=== PATIENT | male | born 1985 | race Two or more races ===

== ENCOUNTER 2016-05-24 21:13 | Emergency (ER) | payer MEDICAID ==
[~2016-05-24] VITALS: Ht 182.9 cm; Wt 104.3 kg
[2016-05-25 00:50] VITALS: BP 144/103
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
--- NOTE | 2016-05-25 01:05 | NUR ---
URINE COLLECTED. LAB AT BEDSIDE FOR BLOOD DRAW.
[2016-05-25 01:12] LABS: APPEARANCE,URINE CLEAR (CLEAR); BILIRUBIN,URINE 1+ (NEGATIVE); BLOOD, URINE NEGATIVE Ery/uL (NEGATIVE); COLOR,URINE DARK YELLOW (YELLOW); KETONES,URINE TRACE (NEGATIVE); LEUKOCYTE ESTERASE ,URINE NEGATIVE (NEGATIVE); NITRITE, URINE NEGATIVE (NEGATIVE); PROTEIN,URINE TRACE mg/dl (NEGATIVE); UGLUCOSE NEGATIVE (NEGATIVE); UROBILINOGEN,URINE 0.2 EU/dL (0.2)
[2016-05-25 01:12] LABS: BASOPHILS # (AUTO) 0.1 /CMM (0.0-0.2); BASOPHILS % (AUTO) 0.8 % (0.0-2.0); EOSINOPHILS # (AUTO) 0.1 /CMM (0.0-0.7); EOSINOPHILS % (AUTO) 0.8 % (0.0-6.0); HEMATOCRIT 49 % (39-51); HEMOGLOBIN 16.4 g/dL (13.5-17.5); LYMPHOCYTES # (AUTO) 3.2 /CMM (0.8-4.8); LYMPHOCYTES % (AUTO) 27.4 % (20.0-44.0); MEAN CORPUSCULAR HEMOGLOBIN 31 PG (26.0-33.0); MEAN CORPUSCULAR HGB CONC 34 g/dl (31.0-36.0); MEAN CORPUSCULAR VOLUME 92 fL (80-96); MONOCYTES # (AUTO) 0.8 /CMM (0.1-1.30); MONOCYTES % (AUTO) 6.4 % (2.0-12.0); NEUTROPHILS # (AUTO) 7.6 /CMM (1.8-8.9); NEUTROPHILS % (AUTO) 64.6 % (43.0-81.0); PLATELET COUNT (AUTO) 385 /CMM (150-450); RDW COEFFICIENT OF VARIATION 13.1 (11.5-15.0); RED BLOOD CELL COUNT(AUTO) 5.33 MIL/uL (4.5-6.0); WHITE BLOOD COUNT (AUTO) 11.8 K/uL (4.3-11.0)
--- NOTE | 2016-05-25 01:21 | NUR ---
ART AT BEDSIDE FOR EVAL.
[2016-05-25 01:25] LABS: CALCIUM, SERUM 9.1 mg/dL (8.5-10.1); CARBON DIOXIDE 24 mmol/L (21-32); CHLORIDE 106 mmol/L (98-107); GFR 88 mL/min (>60); GLUCOSE 92 mg/dL (74-106); POTASSIUM 3.7 mmol/L (3.5-5.1); SODIUM SERUM 142 mmol/L (136-145); UREA NITROGEN, BLOOD 15 mg/dL (7-18)
[2016-05-25 01:30] LABS: CANNABINOID, URINE NEGATIVE (NEGATIVE); PHENCYCLIDINE SCREEN,URINE NEGATIVE (NEGATIVE)
[2016-05-25] MEDS ORDERED: LORAZEPAM INJ 2 MG/ML VIAL IM ONE (01:30)
[2016-05-25 01:33] LABS: ALANINE AMINOTRANSFERASE 82 U/L (12-78); ALBUMIN 4.3 g/dL (3.4-5.0); ALCOHOL, BLOOD < 3 mg/dL (0-0); ALKALINE PHOSPHATASE 112 U/L (46-116); ASPARTATE AMINOTRANSFERASE 35 U/L (15-37); BILIRUBIN,DIRECT 0.1 mg/dL (0.0-0.2); BILIRUBIN,TOTAL 0.4 mg/dL (0.2-1.0); TOTAL PROTEIN, SERUM 8.4 g/dL (6.4-8.2)
[2016-05-25 01:34] LABS: ADD URINE CULTURE NO; BACTERIA,URINE Few /HPF (None Seen); CALCIUM OXALATE CRYSTALS,UR Many /HPF (None Seen); RBC,URINE 0-2 /HPF (0-2); SQUAMOUS EPITHELIAL CELL,UR Rare /HPF (None Seen); WBC,URINE 0-2 /HPF (0-3)
[2016-05-25 01:36] LABS: MUCUS,URINE Many /LPF (None Seen)
[2016-05-25 01:36] LABS: ACETAMINOPHEN 0 ug/ml (10-30); SALICYLATE 2.3 mg/dL (2.8-20.0)
[2016-05-25] MEDS ORDERED: LORAZEPAM INJ 2 MG/ML VIAL ONE (01:47)
== END 2016-05-25 02:29 | disposition home or self-care (01) ==
LOC: ER 21:17
DX: F41.9 Anxiety disorder, unspecified (principal); R07.9 Chest pain, unspecified
CPT/HCPCS: 36415; 80048; 80076; 80305; 80329; 81001; 85025; 96372; 99284; A4606; G0480 ×2; J2060; Z7610; 81000-TC; G6039-TC

== ENCOUNTER 2018-05-22 06:17 | Emergency (ER) | payer MEDICAID, OTHER ==
[~2018-05-22] VITALS: Ht 177.8 cm; Wt 113.4 kg
[2018-05-22] MEDS ORDERED: HALOPERIDOL LACTATE INJ 5 MG/ML VIAL ONE (06:22)
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
[2018-05-22] MEDS ORDERED: HALOPERIDOL LACTATE INJ 5 MG/ML VIAL IM ONE (06:30)
--- NOTE | 2018-05-22 06:58 | NUR ---
PT RESTING COMFORTABLY IN BED. EASILY AROUSABLE. PT STILL ON CONTINUOUS COOK AT SCHOOL, WILL CONTINUE TO MONITOR
--- NOTE | 2018-05-22 07:23 | NUR ---
GAVE REPORT TO AM SHIFT RN FOR BERE
--- NOTE | 2018-05-22 07:50 | NUR ---
ASSUME PT CARE. RESTING IN BED. EASILY AROUSABLE. DENIES ANY PAIN. STABLE VITALS. WILL CONTINUE TO MONITOR.
[2018-05-22 09:30] VITALS: BP 115/60
--- NOTE | 2018-05-22 09:30 | NUR ---
PT IS AWAKE. AAOX4, DENIES ANY MEDICAL COMPLAINTS AT THIS TIME. VSS.
--- NOTE | 2018-05-22 10:08 | NUR ---
PT MEDICALLY CLEARED BY ERMD FOR D/C. LEFT ED W/OUT ACI AND PRESCRIPTION.
== END 2018-05-22 10:13 | disposition home or self-care (01) ==
LOC: ER 06:19
DX: T43.621A Poisoning by amphetamines, accidental (unintentional), initial encounter (principal); Y92.89 Other specified places as the place of occurrence of the external cause
CPT/HCPCS: J1630

== ENCOUNTER 2019-04-22 00:15 | Emergency (ER) | payer SELFPAY ==
[~2019-04-22] VITALS: Ht 177.8 cm; Wt 81.6 kg
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
--- NOTE | 2019-04-22 00:45 | NUR ---
ART OFFICERS AT BEDSIDE TALKING TO PT.
[2019-04-22] MEDS ORDERED: HYDROCODONE/APAP 5/325MG 1 EACH TABLET ONE (00:55)
[2019-04-22] MEDS: HYDROCODONE/APAP 5/325MG 1 EACH TABLET PO ONE (00:55)
--- NOTE | 2019-04-22 01:31 | NUR ---
TECH AT BEDSIDE FOR XRAY
--- NOTE | 2019-04-22 02:10 | NUR ---
Christiano fernandez in ED - 04/22/19 at 0331 by NATHAN Patient discharged to home in stable condition. Written and verbal after care instructions given. Patient verbalizes understanding of instruction.
[2019-04-22 02:11] VITALS: BP 117/81
== END 2019-04-22 03:32 | disposition left against medical advice (07) ==
LOC: ER 00:16
DX: M25.512 Pain in left shoulder (principal); M25.522 Pain in left elbow; M79.632 Pain in left forearm; M79.662 Pain in left lower leg; M79.661 Pain in right lower leg; F12.90 Cannabis use, unspecified, uncomplicated; Y00.XXXA Assault by blunt object, initial encounter; Y93.89 Activity, other specified; Y92.89 Other specified places as the place of occurrence of the external cause; Y99.8 Other external cause status
CPT/HCPCS: 73030-TC; 73070-TC; 73090-TC; 73590-TC

== ENCOUNTER 2019-05-08 23:08 | Emergency (ER) | payer SELFPAY ==
[~2019-05-08] VITALS: Ht 182.9 cm; Wt 90.7 kg
--- NOTE | 2019-05-08 23:10 | NUR ---
KELVIN AND [employer] FROM STREET. PT ADMITS TO METH USE EARLIER TODAY PER RA, BS 94, pt awake, pt on monitor, pt to bed 6, -sob, pending md ty
[2019-05-08] MEDS ORDERED: LORAZEPAM INJ 2 MG/ML VIAL ONE (23:56)
[2019-05-09] MEDS ORDERED: LORAZEPAM INJ 2 MG/ML VIAL IM ONE
--- NOTE | 2019-05-09 00:58 | NUR ---
pt in bed, pt on monitor, vss, nad noted, sleeping at this time
--- NOTE | 2019-05-09 04:20 | NUR ---
Patient is resting comfortably in bed with eyes closed. Easily aroused. VSS
[2019-05-09 05:56] VITALS: BP 122/81
== END 2019-05-09 05:56 | disposition home or self-care (01) ==
LOC: ER 23:12
DX: F15.10 Other stimulant abuse, uncomplicated (principal)
CPT/HCPCS: 96372; 99283; J2060

== ENCOUNTER 2019-08-28 19:41 | Emergency (ER) | payer MEDICAID, OTHER ==
[~2019-08-28] VITALS: Ht 182.9 cm; Wt 108.9 kg
[2019-08-28 19:41] VITALS: BP 120/54
--- NOTE | 2019-08-28 19:48 | NUR ---
SEEN AND EXAMINED BY .
[2019-08-28] MEDS ORDERED: LORAZEPAM 1 MG TABLET ONE (19:51)
--- NOTE | 2019-08-28 19:57 | NUR ---
Patient discharged to home in stable condition. Written and verbal after care instructions given. Patient verbalizes understanding of instruction.
[2019-08-28] MEDS ORDERED: LORAZEPAM 1 MG TABLET PO ONE (20:00)
== END 2019-08-28 20:03 | disposition home or self-care (01) ==
LOC: ER 19:46
DX: F41.9 Anxiety disorder, unspecified (principal); F12.90 Cannabis use, unspecified, uncomplicated

== ENCOUNTER → 2019-09-09 | Emergency (ER) | payer OTHER ==
[~2019-09-09] VITALS: Ht 182.9 cm; Wt 108.9 kg
[~2019-09-09] MED LIST: OLANZAPINE 10 MG VIAL IM ONE
--- NOTE | 2019-09-09 20:29 | NUR ---
BIB EMS WITH [employer] C/O "ALTERED, METH USE" PER EMS REPORT. VERSED 5MG IM GIVEN BY EMS HAND CLOTH CUTTER. PT TO BED 15, PLACED ON MONITOR, VSS, -SOB, PENDING MD RIVAS
--- NOTE | 2019-09-09 20:52 | NUR ---
BIJAL [phone] MOTHER
[2019-09-09 21:01] LABS: BASOPHILS # (AUTO) 0.1 /CMM (0.0-0.2); BASOPHILS % (AUTO) 1.3 % (0.0-2.0); EOSINOPHILS % (AUTO) 0.8 % (0.0-6.0); HEMATOCRIT 37 % (39-51); HEMOGLOBIN 12.5 g/dL (13.5-17.5); LYMPHOCYTES # (AUTO) 2.3 /CMM (0.8-4.8); LYMPHOCYTES % (AUTO) 24.1 % (20.0-44.0); MEAN CORPUSCULAR HGB CONC 34 g/dl (31.0-36.0); MEAN CORPUSCULAR VOLUME 92 fL (80-96); MONOCYTES # (AUTO) 0.8 /CMM (0.1-1.30); MONOCYTES % (AUTO) 8.5 % (2.0-12.0); NEUTROPHILS # (AUTO) 6.3 /CMM (1.8-8.9); NEUTROPHILS % (AUTO) 65.3 % (43.0-81.0); PLATELET COUNT (AUTO) 396 /CMM (150-450); RED BLOOD CELL COUNT(AUTO) 4.01 MIL/uL (4.5-6.0); WHITE BLOOD COUNT (AUTO) 9.6 K/uL (4.3-11.0)
[2019-09-09 21:14] LABS: ALANINE AMINOTRANSFERASE 25 U/L (12-78); ALBUMIN 3.2 g/dL (3.4-5.0); ALKALINE PHOSPHATASE 75 U/L (46-116); ASPARTATE AMINOTRANSFERASE 20 U/L (15-37); BILIRUBIN,DIRECT 0.1 mg/dL (0.0-0.2); BILIRUBIN,TOTAL 0.3 mg/dL (0.2-1.0); CARBON DIOXIDE 21 mmol/L (21-32); CHLORIDE 105 mmol/L (98-107); CREATININE 1.3 mg/dL (0.6-1.3); GLUCOSE 114 mg/dL (74-106); POTASSIUM 3.5 mmol/L (3.5-5.1); SODIUM SERUM 140 mmol/L (136-145); TOTAL PROTEIN, SERUM 7.6 g/dL (6.4-8.2); UREA NITROGEN, BLOOD 19 mg/dL (7-18)
--- NOTE | 2019-09-09 21:16 | NUR ---
PATIENT CAME TO ER BED 15 BIB [employer] AND [employer] C/O TAKING DRUGS. PATIENT STATES THAT HE TOOK CRYSTAL METH. PATIENT ADMITS TO HEARING VOICES, BUT IS UNSURE OF WHAT THE VOICES ARE SAYING. PATIENT STATES, "FUCK THIS SHIT, I JUST WANNA GO HOME". DENIES SUICIDAL IDEATION. AAOX2. BREATHING EVENLY AND UNLABORED ON ROOM AIR. CONNECTED TO MONITOR. SITTER AT BEDSIDE.
[2019-09-09 21:43] LABS: ACETAMINOPHEN 0 ug/ml (10-30); ALCOHOL, BLOOD < 3 mg/dL (0-0); SALICYLATE 1.4 mg/dL (2.8-20.0)
--- NOTE | 2019-09-09 22:02 | NUR ---
URINE COLLECTED AND SENT TO THE LAB.
[2019-09-09 22:16] LABS: APPEARANCE,URINE Clear (CLEAR); BILIRUBIN,URINE Negative (NEGATIVE); BLOOD, URINE Moderate Ery/uL (NEGATIVE); COLOR,URINE Yellow (YELLOW); KETONES,URINE Trace (NEGATIVE); LEUKOCYTE ESTERASE ,URINE Negative (NEGATIVE); NITRITE, URINE Negative (NEGATIVE); PROTEIN,URINE Negative (NEGATIVE); UGLUCOSE Negative (NEGATIVE)
[2019-09-09 22:39] LABS: BACTERIA,URINE Few /HPF (None Seen); SQUAMOUS EPITHELIAL CELL,UR Few /HPF (None Seen); WBC,URINE 0-2 /HPF (0-3)
--- NOTE | 2019-09-10 05:50 | NUR ---
PT AWAKE. AAOX4. CALM AND COOPERATIVE. DENIES SI/HI AT THIS TIME
--- NOTE | 2019-09-10 05:51 | NUR ---
ATTEMPTED TO CONTACT YOJANA MCCORD FOR EVALUATION. LEFT MESSAGE, WILL FOLLOW UP
--- NOTE | 2019-09-10 06:04 | NUR ---
SPOKE WITH YOJANA MCCORD FOR EVALUATION, EN ROUTE TO HOSPITAL
--- NOTE | 2019-09-10 07:10 | NUR ---
YOJANA MCCORD AT BEDSIDE FOR EVALUATION
--- NOTE | 2019-09-10 09:13 | NUR ---
[facility] RE FAXED. CALLED INTAKE. SPOKE TO [facility] FOR CONFIRMATION.
--- NOTE | 2019-09-10 09:50 | NUR ---
PT PROVIDED W/ BREAKFAST TRAY.
--- NOTE | 2019-09-10 11:20 | NUR ---
CALLED [facility] [phone]. ETA 1200 PER SHREE.
[2019-09-10 12:16] VITALS: BP 116/63
== END | disposition home or self-care (01) ==
LOC: ER 20:31
DX: F15.129 Other stimulant abuse with intoxication, unspecified (principal); F98.9 Unspecified behavioral and emotional disorders with onset usually occurring in childhood and adolescence; F41.9 Anxiety disorder, unspecified
CPT/HCPCS: 36415; 80048; 80076; 80305; 80307; 80329; 81001; 85025; 96372; 99285; G0480; J3490; 81000-TC

== ENCOUNTER 2019-10-04 20:02 | Emergency (ER) | payer OTHER ==
[~2019-10-04] VITALS: Ht 182.9 cm; Wt 106.6 kg
[2019-10-04] MEDS ORDERED: LIDOCAINE 1%-EPI 1:100,000 20 ML VIAL ONE (20:22)
[2019-10-04] MEDS ORDERED: TDAP [DIPH/PERTUSSIS/TET] 0.5 ML VIAL IM ONE ×2 (20:23→20:30)
--- NOTE | 2019-10-04 20:25 | NUR ---
PT AAOX4. AMBULATORY WITH STEADY GAIT. BIBSELF C/O R UPPER THIGH "SPIDER BITES X 1 WEEK" NO ACUTE DISTRESS NOTED. REDNESS NOTED ON R UPPER THIGH.
[2019-10-04] MEDS ORDERED: CEFAZOLIN 1 GM VIAL IM ONE (20:30)
[2019-10-04] MEDS ORDERED: LIDOCAINE 1%-EPI 1:100,000 50 ML VIAL IJ ONE (20:30)
--- NOTE | 2019-10-04 20:52 | NUR ---
AT BEDSIDE FOR WOUND CARE
--- NOTE | 2019-10-04 21:06 | NUR ---
Patient discharged to home in stable condition. Written and verbal after care instructions given. Patient verbalizes understanding of instruction. Pt ambulatory with a steady gait IV removed. Catheter intact and site benign. Pressure and 4x4 applied to site. No bleeding noted.
[2019-10-04 21:07] VITALS: BP 116/80
== END 2019-10-04 21:07 | disposition home or self-care (01) ==
LOC: ER 20:07
DX: L02.415 Cutaneous abscess of right lower limb (principal); L03.115 Cellulitis of right lower limb; F15.10 Other stimulant abuse, uncomplicated; F41.9 Anxiety disorder, unspecified; F32.9 Major depressive disorder, single episode, unspecified; R45.851 Suicidal ideations
CPT/HCPCS: 10060; 90471; 90715; 96372; 99284; A6403; A6407; J0690; J3490 ×2

== ENCOUNTER 2019-10-05 12:56 | Emergency (ER) | payer OTHER ==
[~2019-10-05] VITALS: Ht 182.9 cm; Wt 106.6 kg
[2019-10-05 13:05] VITALS: BP 139/88
--- NOTE | 2019-10-05 13:09 | NUR ---
DR RUBIO AT BEDSIDE FOR EVAL
--- NOTE | 2019-10-05 13:35 | NUR ---
Patient discharged to home in stable condition. Written and verbal after care instructions given. Patient verbalizes understanding of instruction.
== END 2019-10-05 13:36 | disposition home or self-care (01) ==
LOC: ER 12:56
DX: L02.415 Cutaneous abscess of right lower limb (principal)

== ENCOUNTER 2020-02-26 10:33 | Observation (INO) | payer OTHER ==
[~2020-02-26] VITALS: Ht 175.3 cm; Wt 113.4 kg
--- NOTE | 2020-02-26 10:45 | NUR ---
BIBRA39 FROM HOME "Mother called-he was smoking Meth and got Agitated. Given NS/Versed en route L AC G18." TO ER BED 12, HOOKED TO PENS AND PENCILS DIPPER, BP CUFF AND POX, CHANGED TO HOSP GOWN, WARM BLANLET PROVIDED, PATIENT AROUSABLE BY PAINFUL STIMULI, BREATHING EVEN AND UNLABORED, AWAITING MD RIVAS
--- NOTE | 2020-02-26 10:52 | NUR ---
DR ARNDT AT BEDSIDE FOR EVAL
--- NOTE | 2020-02-26 14:14 | NUR ---
PATIENT IN BED, ASLEEP, EASILY AROUSABLE BY VOICE. HOOKED TO MONITOR, WILL CONTINUE TO MONITOR ACCORDINGLY.
[2020-02-26] MEDS ORDERED: MAG HYDROX/AL HYDROX/SIMETH 30 ML UDC PO PRN (14:30)
[2020-02-26] MEDS ORDERED: Z GUARD REMEDY 2 OZ OINT TP PRN (14:30)
[2020-02-26] MEDS ORDERED: ONDANSETRON HCL/PF 4 MG/2 ML VIAL IVP PRN (14:30)
[2020-02-26] MEDS ORDERED: ACETAMINOPHEN 325 MG TABLET PO PRN (14:30)
[2020-02-26] MEDS ORDERED: IV NS 0.9% 1,000 ML IV ONE (14:30)
[2020-02-26] MEDS ORDERED: MAGNESIUM HYDROXIDE 30 ML UDC PO PRN (14:30)
[2020-02-26] MEDS ORDERED: HYDROCODONE/APAP 5/325MG TABLET PO PRN (14:30)
[2020-02-26] MEDS ORDERED: ZOLPIDEM TARTRATE 5 MG TABLET PO PRN (14:30)
[2020-02-26 15:08] LABS: BASOPHILS # (AUTO) 0.1 /CMM (0.0-0.2); BASOPHILS % (AUTO) 0.9 % (0.0-2.0); EOSINOPHILS % (AUTO) 0.8 % (0.0-6.0); HEMATOCRIT 41 % (39-51); HEMOGLOBIN 13.6 g/dL (13.5-17.5); LYMPHOCYTES # (AUTO) 2.4 /CMM (0.8-4.8); LYMPHOCYTES % (AUTO) 22.6 % (20.0-44.0); MEAN CORPUSCULAR HGB CONC 33 g/dl (31.0-36.0); MEAN CORPUSCULAR VOLUME 92 fL (80-96); MONOCYTES # (AUTO) 0.9 /CMM (0.1-1.30); MONOCYTES % (AUTO) 8.1 % (2.0-12.0); NEUTROPHILS # (AUTO) 7.3 /CMM (1.8-8.9); NEUTROPHILS % (AUTO) 67.6 % (43.0-81.0); PLATELET COUNT (AUTO) 340 /CMM (150-450); RED BLOOD CELL COUNT(AUTO) 4.43 MIL/uL (4.5-6.0); WHITE BLOOD COUNT (AUTO) 10.8 K/uL (4.3-11.0)
[2020-02-26 15:25] LABS: CALCIUM, SERUM 8.8 mg/dL (8.5-10.1); CREATININE 0.9 mg/dL (0.6-1.3); MAGNESIUM 2.1 mg/dL (1.8-2.4); PHOSPHORUS 4.3 mg/dL (2.5-4.9); POTASSIUM 3.3 mmol/L (3.5-5.1)
--- NOTE | 2020-02-26 16:32 | NUR ---
PATIENT AWAKE, ABLE TO AMBULATE W STEADY GAIT. AAO x 4.
--- NOTE | 2020-02-26 16:39 | NUR ---
MADE DR MCDANIELS AWARE. WILL SEE THE PATIENT TO BE DISCHARGED.
--- NOTE | 2020-02-26 17:07 | NUR ---
IV removed. Catheter intact and site benign. Pressure and 4x4 applied to site. No bleeding noted.
--- NOTE | 2020-02-26 17:22 | NUR ---
DR MCDANIELS AT BEDSIDE
[2020-02-26] MEDS ORDERED: POTASSIUM CHLORIDE 10 MEQ TABLET.SA PO ONE (17:30)
--- NOTE | 2020-02-26 17:31 | NUR ---
ELOPED PRIOR TO INSTRUCTIONS GIVEN.
[2020-02-26 17:34] VITALS: BP 119/65
== END 2020-02-26 17:31 | disposition home or self-care (01) ==
LOC: ER 10:39 → TRANSITION 14:02
PROVIDERS: ADMIT Family Medicine; ATTEND Family Medicine
DX: T43.621A Poisoning by amphetamines, accidental (unintentional), initial encounter (principal); G92 Toxic encephalopathy; F15.188 Other stimulant abuse with other stimulant-induced disorder; F41.9 Anxiety disorder, unspecified; Y92.009 Unspecified place in unspecified non-institutional (private) residence as the place of occurrence of the external cause
CPT/HCPCS: 36415; 80048; 83735; 84100; 85025; 96360; 96361; 99285; G0378 ×3; J2405

== ENCOUNTER 2020-07-04 20:34 | Emergency (ER) | payer OTHER ==
[~2020-07-04] VITALS: Ht 177.8 cm; Wt 70.3 kg
[2020-07-04] MEDS ORDERED: OLANZAPINE 10 MG VIAL IM ONE ×2 (20:59→21:00)
[2020-07-04 21:32] LABS: BASOPHILS # (AUTO) 0.1 /CMM (0.0-0.2); BASOPHILS % (AUTO) 1.1 % (0.0-2.0); EOSINOPHILS % (AUTO) 0.7 % (0.0-6.0); HEMATOCRIT 39 % (39-51); LYMPHOCYTES # (AUTO) 2.6 /CMM (0.8-4.8); LYMPHOCYTES % (AUTO) 35.5 % (20.0-44.0); MEAN CORPUSCULAR HGB CONC 33 g/dl (31.0-36.0); MEAN CORPUSCULAR VOLUME 90 fL (80-96); MONOCYTES # (AUTO) 0.6 /CMM (0.1-1.30); MONOCYTES % (AUTO) 8.2 % (2.0-12.0); NEUTROPHILS # (AUTO) 3.9 /CMM (1.8-8.9); NEUTROPHILS % (AUTO) 54.5 % (43.0-81.0); PLATELET COUNT (AUTO) 292 /CMM (150-450); RED BLOOD CELL COUNT(AUTO) 4.34 MIL/uL (4.5-6.0); WHITE BLOOD COUNT (AUTO) 7.2 K/uL (4.3-11.0)
[2020-07-04 21:47] LABS: ACETAMINOPHEN < 10 ug/ml (10-30); ALANINE AMINOTRANSFERASE 21 U/L (12-78); ALBUMIN 3.8 g/dL (3.4-5.0); ALCOHOL, BLOOD < 3 mg/dL (0-0); ALKALINE PHOSPHATASE 85 U/L (46-116); ASPARTATE AMINOTRANSFERASE 24 U/L (15-37); BILIRUBIN,DIRECT 0.2 mg/dL (0.0-0.2); BILIRUBIN,TOTAL 0.6 mg/dL (0.2-1.0); CARBON DIOXIDE 24 mmol/L (21-32); CHLORIDE 104 mmol/L (98-107); GLUCOSE 103 mg/dL (74-106); SODIUM SERUM 140 mmol/L (136-145); TOTAL PROTEIN, SERUM 7.1 g/dL (6.4-8.2); UREA NITROGEN, BLOOD 12 mg/dL (7-18)
[2020-07-04] MEDS ORDERED: POTASSIUM CHLORIDE 20 MEQ TAB.PRT.SR PO ONE ×2 (22:00→22:06)
--- NOTE | 2020-07-04 22:02 | NUR ---
pt unable to provide ua at this time. dr. hamilton made aware.
--- NOTE | 2020-07-05 00:36 | NUR ---
pt appears comfortable and sleeping at this time. no acute distress noted. vss.
--- NOTE | 2020-07-05 06:24 | NUR ---
PT CLEARED FOR DISCHARGE PER DR. DIGGS. Patient discharged to home in stable condition. Written and verbal after care instructions given. Patient verbalizes understanding of instruction. PT ambulatory with a steady gait
[2020-07-05 06:26] VITALS: BP 108/77
== END 2020-07-05 06:26 | disposition home or self-care (01) ==
LOC: ER 20:36
DX: F41.9 Anxiety disorder, unspecified (principal); F15.10 Other stimulant abuse, uncomplicated; E87.6 Hypokalemia; D64.9 Anemia, unspecified
CPT/HCPCS: 80048; 80076; 80299; 80307; 80320; 82550; 85025; 96372; 99285; J3490; 82553; G0480

== ENCOUNTER 2021-02-22 21:53 | Emergency (ER) | payer OTHER ==
[~2021-02-22] VITALS: Ht 182.9 cm; Wt 90.7 kg
--- NOTE | 2021-02-22 22:15 | NUR ---
BIB FAMILY C/O SOB X2DAYS AFTER "EATING AT 711" AND DOING METH X2DAYS AGO. PULSE OX AND MANAGER AMBULATORY APPLIED SATTING 100% RA RR26. WAS AT BEDSIDE FOR EVAL.
[2021-02-22] MEDS ORDERED: LORAZEPAM 1 MG TABLET PO ONE (22:30)
[2021-02-22] MEDS ORDERED: LORAZEPAM 1 MG TABLET ONE (22:40)
[2021-02-22] MEDS ORDERED: ALBUTEROL FS 2.5 MG/0.5 ML VIAL.NEB ONE (23:23)
[2021-02-22] MEDS ORDERED: ALBUTEROL FS 2.5 MG/0.5 ML VIAL.NEB NEB ONE (23:30)
--- NOTE | 2021-02-22 23:53 | NUR ---
Patient discharged to home in stable condition. Written and verbal after care instructions given. Patient verbalizes understanding of instruction. VSS stable at time of discharge.
[2021-02-22 23:54] VITALS: BP 108/79
== END 2021-02-22 23:54 | disposition home or self-care (01) ==
LOC: ER 21:54
DX: F41.9 Anxiety disorder, unspecified (principal); J90 Pleural effusion, not elsewhere classified; F12.90 Cannabis use, unspecified, uncomplicated
CPT/HCPCS: 71045-TC

== ENCOUNTER 2021-02-25 20:08 | Inpatient (IN) | payer OTHER ==
[~2021-02-25] VITALS: Ht 182.9 cm; Wt 93.9 kg
--- NOTE | 2021-02-25 20:14 | NUR ---
BIBS FOR C/O COUGH FOR A WEEK. TOLERATING R/A AT 99%
--- NOTE | 2021-02-25 21:05 | NUR ---
Christiano fernandez in ED - 02/25/21 at 2114 by LOCO BRANCH LIBRARY CLERK AT BEDSIDE
--- NOTE | 2021-02-25 21:12 | NUR ---
BLOOD & URINE COLLECTED AND SENT TO LAB
--- NOTE | 2021-02-25 21:12 | NUR ---
COVID SWAB DONE SENT TO LAB
--- NOTE | 2021-02-25 21:14 | NUR ---
EMT AT BEDSIDE FOR EKG AND MRSA SWAB
[2021-02-25 21:26] LABS: BASOPHILS # (AUTO) 0.1 K/uL (0.0-0.2); BASOPHILS % (AUTO) 1.2 % (0.0-2.0); EOSINOPHILS % (AUTO) 0.4 % (0.0-6.0); HEMATOCRIT 44 % (39-51); HEMOGLOBIN 14.1 g/dL (13.5-17.5); LYMPHOCYTES # (AUTO) 2.7 K/uL (0.8-4.8); LYMPHOCYTES % (AUTO) 25.4 % (20.0-44.0); MEAN CORPUSCULAR HGB CONC 32 g/dl (31.0-36.0); MEAN CORPUSCULAR VOLUME 97 fL (80-96); MONOCYTES % (AUTO) 9.2 % (2.0-12.0); NEUTROPHILS # (AUTO) 6.9 K/uL (1.8-8.9); NEUTROPHILS % (AUTO) 63.8 % (43.0-81.0); PLATELET COUNT (AUTO) 369 K/uL (150-450); RED BLOOD CELL COUNT(AUTO) 4.55 MIL/uL (4.5-6.0); WHITE BLOOD COUNT (AUTO) 10.8 K/uL (4.3-11.0)
--- NOTE | 2021-02-25 21:32 | NUR ---
FOR PHYSICIAN TO PHYSICIAN REPORT PLEASE CALL DR MORALES AT [phone]
[2021-02-25 21:51] LABS: CALCIUM, SERUM 8.6 mg/dL (8.5-10.1); CREATININE 1.4 mg/dL (0.6-1.3); POTASSIUM 4.7 mmol/L (3.5-5.1)
[2021-02-25] MEDS ORDERED: IOHEXOL-350 100 ML VIAL IV ONE (21:51)
[2021-02-25] MEDS ORDERED: CT SWABBABLE VALVE TRANS SET 1 EA INFUS.SET MC ONE (21:51)
[2021-02-25] MEDS ORDERED: IV NS 0.9% 250 ML IV ONE (21:51)
--- NOTE | 2021-02-25 21:56 | NUR ---
PT TAKEN TO CT VIA [place]
--- NOTE | 2021-02-25 21:58 | NUR ---
Christiano fernandez in [facility] - 02/25/21 at 2210 by LOCO REPORT GIVEN TO CASTRO SENIOR BERE
--- NOTE | 2021-02-25 22:08 | NUR ---
Christiano fernandez in EDM - 02/25/21 at 2210 by LOCO PT TRANSFERRED TO [phone] VIA ACLS PROTOCOL. VSS. ALL BELONGINGS WITH PT.
[2021-02-25] MEDS ORDERED: FUROSEMIDE 20 MG/2 ML VIAL IV ONE (22:30)
[2021-02-25] MEDS ORDERED: LABETALOL HCL IV 100MG VIAL IV ONE (22:30)
--- NOTE | 2021-02-25 22:41 | NUR ---
AZALIA MAHMOOD ON THE PHONE WMoe MORALES AT [facility]. AUTHORIZED TO ADMIT THE PT HERE AT [facility]
--- NOTE | 2021-02-25 22:46 | NUR ---
CALLED HOUSE SDUP FOR TELE BED
[2021-02-25] MEDS ORDERED: FUROSEMIDE 20 MG/2 ML VIAL ONE (23:05)
[2021-02-25] MEDS ORDERED: LABETALOL HCL IV 100MG VIAL ONE (23:06)
--- NOTE | 2021-02-25 23:14 | NUR ---
HELD LABETOLOL FOR LOW BP PER DR EHRNÁNDEZ'S ORDER REPORT GIVEN TO [place] ON THIRD FLOOR
[2021-02-25 23:25] VITALS: BP 136/93
--- NOTE | 2021-02-25 23:25 | NUR ---
AUTH NUMBER FOR ADMISSION: [id number]
--- NOTE | 2021-02-25 23:26 | NUR ---
PT WAS TRANSFERRED TO THIRD FLOOR UNDER ACLS
[2021-02-25] MEDS ORDERED: MAG HYDROX/AL HYDROX/SIMETH 30 ML UDC PO PRN (23:30)
[2021-02-25] MEDS ORDERED: ZOLPIDEM TARTRATE 5 MG TABLET PO PRN (23:30)
[2021-02-25] MEDS ORDERED: ACETAMINOPHEN 325 MG TABLET PO PRN (23:30)
[2021-02-25] MEDS ORDERED: ONDANSETRON HCL/PF 4 MG/2 ML VIAL IVP PRN (23:30)
[2021-02-25] MEDS ORDERED: Z GUARD REMEDY 2 OZ OINT TP PRN (23:30)
[2021-02-25] MEDS ORDERED: MAGNESIUM HYDROXIDE 30 ML UDC PO PRN (23:30)
[2021-02-25 23:39] LABS: BILIRUBIN,URINE NEGATIVE (NEGATIVE); COLOR,URINE YELLOW (YELLOW); LEUKOCYTE ESTERASE ,URINE NEGATIVE (NEGATIVE); NITRITE, URINE NEGATIVE (NEGATIVE); PROTEIN,URINE NEGATIVE (NEGATIVE); UGLUCOSE NEGATIVE (NEGATIVE); UROBILINOGEN,URINE 0.2 EU/dL (0.2)
[2021-02-26] VITALS (7 sets, daily range): BP systolic 112–136; BP diastolic 81–99
[2021-02-26] MEDS: LORAZEPAM INJ 2 MG/ML VIAL IV PRN (00:06)
--- NOTE | 2021-02-26 00:10 | NUR ---
BOAT ENGINES INSTALLERBACK OFFICE MEDICAL ASSISTANT NOTE RECEIVED PT @7619 FROM E.RMoe VIA [place] ACCOMPANIED BY POWER HAMMER OPERATOR TO [phone]. PT CAME TO ER D/T WORSENING SHORTNESS OF BREATH, WITH ADMITTING DX: CHF, NIKOLAY. PT A/OX4, ABLE TO VERBALIZE NEEDS. PT STILL FEELS SHORT OF BREATH AND VERBALIZED FEELING ANXIOUS. ATIVAN 1MG GIVEN ORDERED. MADE COMFORTABLE IN BED, IN SEMI-SOLANO'S POSITION. PROVIDED WITH URINAL FOR THE NIGHT. SKIN ASSESSMENT DONE/SKIN INTACT. HEALTH/MED TEACHINGS PROVIDED, REINFORCED SAFETY TEACHING AND TO CALL FOR ANY ASSISTANCE. PT VERBALIZED UNDERSTANDING. SAFETY MEASURES IN PLACE, BED IN LOWEST LOCKED POSITION, S/R UPX4, CALL LIGHT WITHIN REACH. WILL CONT TO MONITOR. Addendum: 02/26/21 at 0125 by JONO TRINH RN PT ON TELE MONITOR, READING SINUS TACH, HR 118
--- NOTE | 2021-02-26 00:30 | NUR ---
RN NOTE REASSESS FOR ATIVAN - PT STATES HE IS "FEELING BETTER," LESS SHORTNESS OF BREATH, ALSO STATES, "I FEEL BETTER THAT I'M IN THE HOSPITAL"
--- NOTE | 2021-02-26 01:00 | NUR ---
RN NOTE PT ASLEEP AT THIS TIME. RESP EVEN/UNLABORED.
[2021-02-26 03:17] LABS: BASOPHILS # (AUTO) 0.1 K/uL (0.0-0.2); BASOPHILS % (AUTO) 0.6 % (0.0-2.0); EOSINOPHILS % (AUTO) 0.3 % (0.0-6.0); HEMATOCRIT 39 % (39-51); LYMPHOCYTES % (AUTO) 20.8 % (20.0-44.0); MEAN CORPUSCULAR HGB CONC 33 g/dl (31.0-36.0); MEAN CORPUSCULAR VOLUME 95 fL (80-96); MONOCYTES # (AUTO) 0.9 K/uL (0.1-1.30); MONOCYTES % (AUTO) 9.1 % (2.0-12.0); NEUTROPHILS # (AUTO) 6.8 K/uL (1.8-8.9); NEUTROPHILS % (AUTO) 69.2 % (43.0-81.0); PLATELET COUNT (AUTO) 338 K/uL (150-450); RED BLOOD CELL COUNT(AUTO) 4.13 MIL/uL (4.5-6.0); WHITE BLOOD COUNT (AUTO) 9.8 K/uL (4.3-11.0)
[2021-02-26 03:39] LABS: CALCIUM, SERUM 8.2 mg/dL (8.5-10.1); CREATININE 1.2 mg/dL (0.6-1.3); MAGNESIUM 1.9 mg/dL (1.8-2.4); PHOSPHORUS 4.5 mg/dL (2.5-4.9); POTASSIUM 4.5 mmol/L (3.5-5.1)
--- NOTE | 2021-02-26 06:49 | NUR ---
BUSINESS TEAM LEADER CLOSING NOTE PT RESTING COMFORTABLY IN BED, EASILY AWAKENS TO STIMULI. DENIES ANY PAIN, DENIES SOB AT THIS TIME. PT ON O2 @2LPM DURING THE NIGHT, FOR SOB AND NOTED SLEEP APNEA. O2 SAT 94-99%. PT WAS INSTRUCTED ON BREATHING/RELAXATION TECHNIQUES AND PT ABLE TO RETURN DEMO WHICH HELPED TO CALM HIM DOWN. TELE MONITOR READING SINUS TACH, HR 101. NO C/O CHEST PAIN. PT IN NO ACUTE DISTRESS. FREQUENT VISUAL CHECK DONE. ALL NEEDS ATTENDED TO. SAFETY MEASURES MAINTAINED.
--- NOTE | 2021-02-26 07:12 | NUR ---
INTERIOR PLANT CARETAKER OPENING NOTE RECEIVED PATIENT RESTING IN BED. PT IS A/OX4, ABLE TO VERBALIZE NEEDS. PT IS BREATHING EVENLY AND NONLABORED NO SIGNS OF DISTRESS NOTED. PATIENT DOES NOT COMPLAIN OF PAIN AT THIS TIME. PATIENT ON TELE MONITORING SINUS TACHY @ 110 BPM. PATIENT HAS IV ACCESS TO RAC #18 GAUGE PATENT AND INTACT. SAFETY MEASURES IN PLACE, BED IN LOWEST LOCKED POSITION, S/R UPX4, CALL LIGHT WITHIN REACH. WILL CONT TO MONITOR.
[2021-02-26] MEDS: PANTOPRAZOLE 40 MG TABLET.DR PO SCH (08:20)
[2021-02-26] MEDS: FOLIC ACID 1 MG TABLET PO SCH (08:20)
[2021-02-26] MEDS: THIAMINE HCL 100 MG TABLET PO SCH (08:20)
[2021-02-26] MEDS: HEPARIN SODIUM, PORCINE 5000 UNITS/1 ML VIAL SQ SCH ×2 (08:20→21:17)
[2021-02-26] MEDS: FUROSEMIDE 40 MG/4 ML VIAL IV SCH ×3 (09:12→16:20)
[2021-02-26] MEDS: POTASSIUM CHLORIDE 20 MEQ TAB.PRT.SR PO SCH ×3 (09:12→12:00)
--- NOTE | 2021-02-26 11:16 | NUR ---
INCIDENTAL FINDING Rt MILD- MODERATE EFFUSION CONTACTED MICHAEL AT 10:20 AND REQUESTED ADDENDUM FOR RT PE TO BE ADDED TO RADIOLOGIST REPORT BY MD JUAN C Sahu
--- NOTE | 2021-02-26 18:27 | NUR ---
SHERIFF DETECTIVE CLOSING NOTE PATIENT RESTING IN BED. PT IS A/OX4, ABLE TO VERBALIZE NEEDS. PT IS BREATHING EVENLY AND NONLABORED NO SIGNS OF DISTRESS NOTED. PATIENT DOES NOT COMPLAIN OF PAIN AT THIS TIME. PATIENT ON TELE MONITORING SINUS TACHY @108 BPM. PATIENT HAS IV ACCESS TO RAC #18 GAUGE PATENT AND INTACT. ALL MEDICATIONS GIVEN ORDERED. SAFETY MEASURES IN PLACE, BED IN LOWEST LOCKED POSITION, S/R UPX2 CALL LIGHT WITHIN REACH. WILL ENDORSE TO ONCOMING SHIFT
--- NOTE | 2021-02-26 19:30 | NUR ---
ALUMINUM HYDROXIDE PROCESS OPERATOR OPENING NOTES PATIENT WAS LAST SEEN AWAKE IN BED RESTING. PATIENT'S ALERT AND ORIENTEDX4. PATIENT'S STABLE ON ROOM AIR. PATIENT'S CONNECTED TO A TELE MONITOR WITH NO CARDIAC DISTRESS NOTED. SALINE LOCK NOTED ON RIGHT AC GAUGE #18. PATIENT'S IN NO ACUTE DISTRESS AT THIS TIME. SAFETY MEASURES IN PLACE: BED LOCKED, SIDE RAILS UPX2, AND CALL LIGHT WITHIN REACH OF THE PATIENT. WILL CONTINUE TO MONITOR THE PATIENT.
[2021-02-27 04:28] VITALS: BP 116/75
[2021-02-27 06:19] LABS: BASOPHILS # (AUTO) 0.1 K/uL (0.0-0.2); BASOPHILS % (AUTO) 0.9 % (0.0-2.0); EOSINOPHILS % (AUTO) 0.8 % (0.0-6.0); HEMATOCRIT 37 % (39-51); HEMOGLOBIN 12.3 g/dL (13.5-17.5); LYMPHOCYTES % (AUTO) 33.5 % (20.0-44.0); MEAN CORPUSCULAR HGB CONC 33 g/dl (31.0-36.0); MEAN CORPUSCULAR VOLUME 96 fL (80-96); MONOCYTES # (AUTO) 0.8 K/uL (0.1-1.30); MONOCYTES % (AUTO) 8.3 % (2.0-12.0); NEUTROPHILS # (AUTO) 5.1 K/uL (1.8-8.9); NEUTROPHILS % (AUTO) 56.5 % (43.0-81.0); PLATELET COUNT (AUTO) 284 K/uL (150-450); RED BLOOD CELL COUNT(AUTO) 3.87 MIL/uL (4.5-6.0); WHITE BLOOD COUNT (AUTO) 9.1 K/uL (4.3-11.0)
[2021-02-27 07:02] LABS: ALBUMIN 2.6 g/dL (3.4-5.0); BILIRUBIN,TOTAL 0.8 mg/dL (0.2-1.0); CREATININE 1.3 mg/dL (0.6-1.3); PHOSPHORUS 4.5 mg/dL (2.5-4.9); POTASSIUM 3.7 mmol/L (3.5-5.1); TOTAL PROTEIN, SERUM 5.4 g/dL (6.4-8.2)
--- NOTE | 2021-02-27 07:27 | NUR ---
REFLESHER CLOSING NOTES PATIENT WAS LAST SEEN SLEEPING IN BED. PATIENT'S ALERT AND ORIENTEDX4. PATIENT'S STABLE ON 2LPM OF OXYGEN VIA NASAL CANNULA AND ROOM AIR. PATIENT'S CONNECTED TO A TELE MONITOR WITH NO CARDIAC DISTRESS NOTED. SALINE LOCK NOTED ON RIGHT AC GAUGE #18. PATIENT'S IN NO ACUTE DISTRESS AT THIS TIME. SAFETY MEASURES IN PLACE: BED LOCKED, SIDE RAILS UPX2, AND CALL LIGHT WITHIN REACH OF THE PATIENT. ENDORSED CARE TO THE DAY SHIFT NURSE.
--- NOTE | 2021-02-27 07:49 | NUR ---
TELE/RN OPENING NOTES RECEIVED PATIENT IN BED, ALERT AND ORIENTEDX4. STABLE ON ROOM AIR. PATIENT'S CONNECTED TO A TELE MONITOR WITH SINUS TACHY READING. NO PAIN NO DISTRESS NOTED AT THIS TIME. SALINE LOCK NOTED ON RIGHT AC #18G. PATIENT'S IN NO ACUTE DISTRESS AT THIS TIME. SAFETY MEASURES IN PLACE: BED LOCKED, SIDE RAILS UPX2, AND CALL LIGHT WITHIN REACH OF THE PATIENT. WILL CONTINUE TO MONITOR THE PATIENT.
[2021-02-27 08:00] VITALS: BP 130/90
[2021-02-27] MEDS: PANTOPRAZOLE 40 MG TABLET.DR PO SCH (08:26)
[2021-02-27] MEDS: FUROSEMIDE 40 MG/4 ML VIAL IV SCH ×3 (08:44→16:09)
[2021-02-27] MEDS: VALSARTAN 80 MG TABLET PO SCH (08:45)
[2021-02-27] MEDS: THIAMINE HCL 100 MG TABLET PO SCH (08:45)
[2021-02-27] MEDS: POTASSIUM CHLORIDE 20 MEQ TAB.PRT.SR PO SCH ×3 (08:45→10:10)
[2021-02-27] MEDS: FOLIC ACID 1 MG TABLET PO SCH (08:45)
[2021-02-27] MEDS: HEPARIN SODIUM, PORCINE 5000 UNITS/1 ML VIAL SQ SCH ×2 (08:46→21:20)
[2021-02-27] MEDS: LORAZEPAM INJ 2 MG/ML VIAL IV PRN ×2 (10:14→23:34)
--- NOTE | 2021-02-27 12:55 | NUR ---
SW Consult: SW requested for homelessness and drug use. The pt. is a 35 year old male in [facility] with C/O shortness of breath, cough and bilateral lower extremity swelling. The pt. is A&O x 3, and makes normal eye contact. The pt. presents with a depressed mood, delayed speech and appears restless. Pt. denies homelessness and states he lives with his parents [[address] [facility] [address];[phone]]. Pt. was cooperative when speaking with the SW. Pt. states he has Hx. of methamphetamine and the last time he used was three days prior. SW provided referral to Yoselyn yanez pt. stated he would just like addiction resources. SW provide addiction resources to pt. Pt. denies mental health issues and SI/HI. Pt. denies visual and auditory hallucinations. SW explored pt.'s suspport system and pt. states his mother, Ramonita [phone] is his support system. Plan: Upon discharge, pt. will return home [[address] [facility] [address];[phone]] with parents, Asad Garcia ([phone]) and Ramonita Garcia ([phone]). ADDICTION RESOURCES For Drugs and Alcohol [facility] Substance Abuse Helpline([facility] Outpatient treatment, residential treatment, recovery support for youth and adults [facility] www.actionfamilycounseling.Grivy [facility] Teen programs for drug/alcohol education and support [facility]. Program for adults, sliding scale provides support and education [employer] www.Sudaation.org [place]; Outpatient/residential treatment programs; transition to sober living [facility] www.cri-help.org [place]; Outpatient and residential treatment programs; transition to sober living [facility] Dany Mazariegos; Outpatient education and supportive programs for teens and adults [facility] www.oasiswomensrecovery.org [place]; Residential treatment and work program for females only [facility] www.phoBeepxpahrump.org [place]: Outpatient/residential treatment program for teens and young adults [facility] [place] www.[facility].org [place] [facility], inpatient, outpatient for adults and youth [facility], [facility]. [place]; Outpatient programs and referrals to community residential programs. Alcoholics Anonymous -SFV information and meeting and schedules www.aa-intergroup.org Yn-Veqa-Hhasiwh https://al-anon.org/ [place] support groups for family of alcoholics. Marijuana Anonymous www.PocketFM Limitedistrict6.org -sfv listing of meetings Narcotics Anonymous www.na.org SOBER LIVING RESOURCES [facility] www.soberhousing.net A non-profit agency that provides resources to recovery and sober living homes throughout [facility] Sober Living Homes: A Work in Progress, [facility] Recovery [facility], [facility] Womens Sober Living Homes: [facility] [phone] [place], [place] [facility], [place] Coed Sober Living Homes: [facility] Counseling--Outpatient [facility] [address] [facility] [place] [address] (Specializes in in-depth psychotherapy for emotional distress: anxiety, depression, interpersonal conflicts, life transitions, childhood abuse) [id number] [place] [address] (Assist with solving problem marital difficulties, separation & divorce, aging parents, & grief, chronic & terminal illness) [facility] [address] [place] [address] (Deal with loss & grief, anxiety, marital difficulties) Homebound/Mental Health Services [address] [facility], [address] [place] [address] (Provide in-home mental services to people who are incapable of leaving their homes) [facility] for Needs of the Elderly Senior Service/Resource Center [address] [place] [address] [facility] [address] [place] [address] Mental Health Services Adry Anders [place] [address] [place] [address] Services: Outpatient therapy for children, teens, young adults, adults, older adults, and families; Psychiatric services, medication support Psychiatric Outpatient Services [facility] Partial Hospitalization and Intensive Outpatient Program (Managed Care and [place] Only)[address] [facility] [phone] [facility] Partial Hospitalization and Outpatient [id number] [facility] [address] [place], [place] [phone] [facility] Partial Hospitalization and Outpatient [id number] [facility] [place], [place] [phone] [facility] [id number] [facility]. [address] [place], [place] [phone] [facility] Partial Hospitalization and Outpatient [id number] [place], [phone] Crisis and Hotline Telephone Numbers 24-Hour service unless stated [place] Crisis Hotlines: [place] Mental Health/Crisis Line........420.561.5050 Suicide Prevention Center (24 Hours).......945.514.3825 Suicide Prevention Crisis Center.......[phone] (24 Hours) Assaults Against Women Hotline.........860.522.4335 (24 Hours -- [facility]) Women and Children Crisis Chcf...........[phone] (24 Hours) Child Abuse Hotline............925.610.6341 [facility] (24 Hours)..........[phone] Alcoholics Anonymous (24 Hours)..........[phone] Cocaine Anonymous (24 Hours)............834.269.2938 Narcotics Anonymous (24 Hours)..........[phone] [address] [facility] [address], [place] [address]
[2021-02-27 16:00] VITALS: BP 117/77
--- NOTE | 2021-02-27 19:01 | NUR ---
TELE/RN CLOSING NOTES PATIENT IN BED, ALERT AND ORIENTEDX4. STABLE ON ROOM AIR. PATIENT'S CONNECTED TO A TELE MONITOR WITH SINUS TACHY READING OF 112. NO PAIN NO DISTRESS NOTED AT THIS TIME. SALINE LOCK NOTED ON RIGHT AC #18G. PATIENT'S IN NO ACUTE DISTRESS AT THIS TIME. SAFETY MEASURES IN PLACE: BED LOCKED, SIDE RAILS UPX2, AND CALL LIGHT WITHIN REACH OF THE PATIENT. WILL ENDORSE TO THE NEXT SHIFT FOR BERE.
--- NOTE | 2021-02-27 19:35 | NUR ---
RN NOTES Received patient awake on his bed, alox4, ambulatory Angolan speaking but understand Yoruba a little bit. ST on tele monitor HR -114, not i n distress, denies pain, no SOB, call light within reach, siderailsupx2, will continue to monitor
[2021-02-27 20:00] VITALS: BP 113/65
[2021-02-27 22:00] VITALS: BP 113/65
[2021-02-27 23:50] VITALS: BP 104/69
[2021-02-28] VITALS: BP 104/69
[2021-02-28 05:52] VITALS: BP 104/55
[2021-02-28 06:07] LABS: BASOPHILS # (AUTO) 0.1 K/uL (0.0-0.2); BASOPHILS % (AUTO) 0.9 % (0.0-2.0); EOSINOPHILS % (AUTO) 1.4 % (0.0-6.0); HEMATOCRIT 38 % (39-51); HEMOGLOBIN 12.3 g/dL (13.5-17.5); LYMPHOCYTES # (AUTO) 2.8 K/uL (0.8-4.8); LYMPHOCYTES % (AUTO) 33.5 % (20.0-44.0); MEAN CORPUSCULAR HGB CONC 33 g/dl (31.0-36.0); MEAN CORPUSCULAR VOLUME 96 fL (80-96); MONOCYTES # (AUTO) 0.8 K/uL (0.1-1.30); MONOCYTES % (AUTO) 9.9 % (2.0-12.0); NEUTROPHILS # (AUTO) 4.5 K/uL (1.8-8.9); NEUTROPHILS % (AUTO) 54.3 % (43.0-81.0); PLATELET COUNT (AUTO) 315 K/uL (150-450); RED BLOOD CELL COUNT(AUTO) 3.91 MIL/uL (4.5-6.0); WHITE BLOOD COUNT (AUTO) 8.3 K/uL (4.3-11.0)
--- NOTE | 2021-02-28 06:29 | NUR ---
RN NOTES Sleeping but arousable, not in distress, denies pain, no SOB, morning care rendered, pt. needs attended
[2021-02-28 07:08] LABS: ALBUMIN 2.6 g/dL (3.4-5.0); BILIRUBIN,TOTAL 0.5 mg/dL (0.2-1.0); CALCIUM, SERUM 8.2 mg/dL (8.5-10.1); CREATININE 1.3 mg/dL (0.6-1.3); MAGNESIUM 2.2 mg/dL (1.8-2.4); PHOSPHORUS 5.2 mg/dL (2.5-4.9); POTASSIUM 3.8 mmol/L (3.5-5.1); TOTAL PROTEIN, SERUM 5.5 g/dL (6.4-8.2)
--- NOTE | 2021-02-28 07:17 | NUR ---
MS RN OPENING NOTES RECEIVED PATIENT ON BED, A/O X4. PATIENT ON ROOM AIR WITH NO SIGNS OF ACUTE DISTRESS NOTED. PATIENT DOES NOT COMPLAIN OF PAIN OR DISCOMFORT AT THIS TIME. PATIENT WITH IV ACCESS ON TIGHT AC G 18, ON SALINE LOCK, PATENT AND INTACT. PATIENT INSTRUCTED TO STAY ON THE BED AND MINIMIZE ACTIVITY. SAFETY MEASURES IN PLACE WITH BED ON LOWEST AND LOCKED POSITION, SIDE RAILS UP X2, CALL LIGHT AND TABLE WITHIN REACH. WILL CONTINUE TO MONITOR PATIENT.
[2021-02-28 08:00] VITALS: BP 116/81
[2021-02-28] MEDS: HEPARIN SODIUM, PORCINE 5000 UNITS/1 ML VIAL SQ SCH ×2 (08:17→21:06)
[2021-02-28] MEDS: FOLIC ACID 1 MG TABLET PO SCH (08:22)
[2021-02-28] MEDS: PANTOPRAZOLE 40 MG TABLET.DR PO SCH (08:23)
[2021-02-28] MEDS: VALSARTAN 80 MG TABLET PO SCH (08:23)
[2021-02-28] MEDS: THIAMINE HCL 100 MG TABLET PO SCH (08:23)
[2021-02-28] MEDS ORDERED: FUROSEMIDE 20 MG TABLET PO SCH (09:00)
--- NOTE | 2021-02-28 09:53 | NUR ---
ELEMENTARY SCHOOL COUNSELOR NOTE SEEN BY DR. CURRY, WITH NO NEW ORDER FOR NOW. FOLLOW UP MADE FOR LIFEVEST WITH FINANCE LEAD KEVIN, STILL AWAITING IF PATIENT WILL QUALIFY OR BE APPROVED FOR IT.
[2021-02-28] MEDS: CARVEDILOL 3.125 MG TABLET PO SCH ×2 (10:49→21:07)
[2021-02-28] MEDS: POTASSIUM CHLORIDE 20 MEQ TAB.PRT.SR PO SCH ×3 (10:49→13:21)
[2021-02-28] MEDS: FUROSEMIDE 100 MG/10 ML VIAL IV SCH ×3 (10:49→18:29)
[2021-02-28 12:00] VITALS: BP 105/66
[2021-02-28 16:00] VITALS: BP 121/84
--- NOTE | 2021-02-28 18:33 | NUR ---
CELLOPHANER NOTE PATIENT COMPLETED FUROSEMIDE IV ORDERED. IN STABLE CONDITION.
--- NOTE | 2021-02-28 18:44 | NUR ---
EGG PACKER CLOSING NOTES PATIENT ON BED, A/O X4. PATIENT ON ROOM AIR WITH NO SIGNS OF ACUTE DISTRESS NOTED. PATIENT DOES NOT COMPLAIN OF PAIN OR DISCOMFORT AT THIS TIME. PATIENT WITH IV ACCESS ON TIGHT AC G 18, ON SALINE LOCK, PATENT AND INTACT. PATIENT INSTRUCTED TO STAY ON THE BED AND MINIMIZE ACTIVITY AND ABLE TO FOLLOW INSTRUCTIONS. SAFETY MEASURES IN PLACE WITH BED ON LOWEST AND LOCKED POSITION, SIDE RAILS UP X2, CALL LIGHT AND TABLE WITHIN REACH. WILL ENDORSE PATIENT FOR CONTINUITY OF CARE.
--- NOTE | 2021-02-28 19:34 | NUR ---
BOOKING SUPERVISOR OPENING NOTE PT A/OX4 ABLE TO MAKE NEEDS KNOWN; IN ROOM. TOLERATING R/A WELL WITH NO SOB. EXTERMA; CARDIAC TELE MONITOR READS ST AT 101. RAC #18G S/L; PATENT AND INTACT. DENIES PAIN OR DISCOMFORT AT THIS TIME. ALL NEEDS MET. SAFETY MEASURES IN PLACE: BED IN LOWEST LOCKED POSITION; SIDE RAILS UPX2, CALL LIGHT WITHIN EASY REACH, BED ALARMS ON. PATIENT IN STABLE CONDITION, WILL CONTINUE PLAN OF CARE.
[2021-02-28 19:54] VITALS: BP 110/55
--- NOTE | 2021-02-28 21:16 | NUR ---
FACILITIES OFFICER NOTE - INSOMNIA PT C/O NOT BEING ABLE TO FALL ASLEEP. ADMINISTERED AMBIEN ORDERED PER PT'S REQUEST. WILL CONTINUE TO REASSESS FOR SLEEP IN 1 HOUR
[2021-03-01] VITALS: BP 107/74
[2021-03-01 04:00] VITALS: BP 123/60
[2021-03-01] MEDS: LORAZEPAM INJ 2 MG/ML VIAL IV PRN (04:21)
--- NOTE | 2021-03-01 04:21 | NUR ---
SMALL PRODUCTS I ASSEMBLER NOTE - INSOMNIA PT STATED HE SLEPT A LITTLE BUT C/O NOT BEING ABLE TO FALL BACK ASLEEP. ADMINISTERED ATIVAN ORDERED PER PT'S REQUEST. WILL CONTINUE TO REASSESS FOR SLEEP IN 1 HOUR
--- NOTE | 2021-03-01 06:06 | NUR ---
COMMERCIAL LOAN OFFICER CLOSING NOTE PT A/OX4 ABLE TO MAKE NEEDS KNOWN; IN ROOM. TOLERATING R/A WELL WITH NO SOB. EXTERNAL; CARDIAC TELE MONITOR READS SR AT 90. RAC #18G S/L; PATENT AND INTACT. DENIES PAIN OR DISCOMFORT AT THIS TIME. ALL NEEDS MET. SAFETY MEASURES IN PLACE: BED IN LOWEST LOCKED POSITION; SIDE RAILS UPX2, CALL LIGHT WITHIN EASY REACH, BED ALARMS ON. PATIENT IN STABLE CONDITION, WILL ENDORSE PLAN OF CARE TO ONCOMING MORNING RN.
[2021-03-01 08:00] VITALS: BP 102/72
[2021-03-01] MEDS: PANTOPRAZOLE 40 MG TABLET.DR PO SCH (08:11)
--- NOTE | 2021-03-01 08:21 | NUR ---
PAINTING CONTRACTOR OPENING NOTES RECEIVED PATIENT ON BED, A/O X4. PATIENT ON ROOM AIR WITH NO SIGNS OF ACUTE DISTRESS NOTED. PATIENT DOES NOT COMPLAIN OF PAIN OR DISCOMFORT AT THIS TIME. PATIENT WITH IV ACCESS ON RIGHT AC G #18, ON SALINE LOCK, PATENT AND INTACT. PATIENT INSTRUCTED TO STAY ON THE BED AND MINIMIZE ACTIVITY. SAFETY MEASURES IN PLACE WITH BED ON LOWEST AND LOCKED POSITION, SIDE RAILS UP X2, CALL LIGHT AND TABLE WITHIN REACH. WILL CONTINUE TO MONITOR PATIENT.
[2021-03-01 08:34] LABS: BASOPHILS # (AUTO) 0.1 K/uL (0.0-0.2); BASOPHILS % (AUTO) 0.7 % (0.0-2.0); EOSINOPHILS % (AUTO) 0.9 % (0.0-6.0); HEMATOCRIT 40 % (39-51); HEMOGLOBIN 13.2 g/dL (13.5-17.5); LYMPHOCYTES # (AUTO) 1.8 K/uL (0.8-4.8); LYMPHOCYTES % (AUTO) 21.1 % (20.0-44.0); MEAN CORPUSCULAR HGB CONC 33 g/dl (31.0-36.0); MEAN CORPUSCULAR VOLUME 94 fL (80-96); MONOCYTES # (AUTO) 0.6 K/uL (0.1-1.30); MONOCYTES % (AUTO) 6.8 % (2.0-12.0); NEUTROPHILS # (AUTO) 5.9 K/uL (1.8-8.9); NEUTROPHILS % (AUTO) 70.5 % (43.0-81.0); PLATELET COUNT (AUTO) 343 K/uL (150-450); RED BLOOD CELL COUNT(AUTO) 4.21 MIL/uL (4.5-6.0); WHITE BLOOD COUNT (AUTO) 8.4 K/uL (4.3-11.0)
[2021-03-01] MEDS: HEPARIN SODIUM, PORCINE 5000 UNITS/1 ML VIAL SQ SCH (08:43)
[2021-03-01] MEDS: THIAMINE HCL 100 MG TABLET PO SCH (08:49)
[2021-03-01] MEDS: FOLIC ACID 1 MG TABLET PO SCH (08:49)
[2021-03-01] MEDS: CARVEDILOL 3.125 MG TABLET PO SCH (08:50)
[2021-03-01] MEDS: VALSARTAN 80 MG TABLET PO SCH (08:50)
--- NOTE | 2021-03-01 08:57 | NUR ---
XEROX MACHINE OPERATOR NOTE PATIENT SEEN BY DR. CURRY. STILL WAITING OF LIFEVEST PRIOR TO POSSIBLE DISCHARGE. WILL CONTINUE TO MONITOR PATIENT.
[2021-03-01] MEDS ORDERED: FUROSEMIDE 40 MG TABLET PO SCH (09:00)
[2021-03-01 09:43] LABS: ALBUMIN 2.9 g/dL (3.4-5.0); BILIRUBIN,TOTAL 0.8 mg/dL (0.2-1.0); CALCIUM, SERUM 8.6 mg/dL (8.5-10.1); CREATININE 1.1 mg/dL (0.6-1.3); MAGNESIUM 2.2 mg/dL (1.8-2.4); PHOSPHORUS 4.3 mg/dL (2.5-4.9); POTASSIUM 4.2 mmol/L (3.5-5.1); TOTAL PROTEIN, SERUM 6.3 g/dL (6.4-8.2)
--- NOTE | 2021-03-01 11:57 | NUR ---
SS Consult: SS Consult requested for drug abuse. SW met with pt. bedside. The pt. is seeking medical Treatment for Congestive Heart Failure. The pt. is A&O 4 and appears well-groomed. The pt. was sleeping but aroused via verbal cues. SW completed drug abuse intervention with pt. Pt. was drowsy and remained compliant but tired throughout interview. SW explored if pt. has had previous treatment for drug abuse. Pt. stated he has participated in a Prop 36 Program in the [facility]. SW encouraged pt. to enroll in drug rehabilitation program for longevity of life. The pt. stated he is agreeable and is willing to go to any drug program. Plan: SW will refer pt. to [facility] in [place]; [facility] ; [facility] [place]. Pt. is agreeable. SW will be available as needed.
[2021-03-01 12:00] VITALS: BP 121/59
--- NOTE | 2021-03-01 13:51 | NUR ---
LATHE OPERATOR NOTE PATIENT REFUSED BEING FITTED FOR LIFE VEST. PATIENT WAS ASKED SEVERAL TIMES INCLUDING BY CHARGE NURSE CHAKA. BUT PATIENT REFUSED. HEALTH TEACHING DONE REGARDING IMPORTANCE OF LIFEVEST AND REPERCUSSION OF REFUSAL. PATIENT VERBALIZED UNDERSTANDING AND APPRECIATION. DR. SANDOVAL NOTIFIED OF PATIENT'S REFUSAL. MD SAID PATIENT MAY GO HOME EVEN WITHOUT LIFEVEST LONG HEALTH TEACHING DONE AND PATIENT UNDERSTANDS ACTION. RAILROAD CAR CLEANING SUPERVISOR KEVIN REYNOSO WELL. WILL CONTINUE TO MONITOR PATIENT. PATIENT WILL BE PICKED UP BY FAMILY MEMBER BETWEEN 4PM TO 5PM. WILL CONTINUE TO MONITOR PATIENT UNTIL THEN.
--- NOTE | 2021-03-01 15:00 | NUR ---
pt provided with Sounds[employer]ly information to call for more info or changes his mind about refusal.
--- NOTE | 2021-03-01 18:45 | NUR ---
PERSONAL COACH NOTE PATEINT DISCHARGED ORDERED. PATIENT PICKED-UP BY PARENTS. IV ACCESS REMOVED AND COVERED WITH DRESSING. PROCEDURE TOLERATED WELL. IN STABLE CONDITION. ACCOMPANIED PATIENT TO LOBBY ON A WHEELCHAIR. ENDORSED ACCORDINGLY.
== END 2021-03-01 18:37 | disposition home or self-care (01) | DRG 194 ==
LOC: ER 20:12 → TELE 22:51
PROVIDERS: ADMIT Nurse Practitioner Family; ATTEND Internal Medicine
DX: I13.0 Hypertensive heart and chronic kidney disease with heart failure and stage 1 through stage 4 chronic kidney disease, or unspecified chronic kidney disease (principal); N17.0 Acute kidney failure with tubular necrosis; I21.4 Non-ST elevation (NSTEMI) myocardial infarction; R18.8 Other ascites; I31.3 Pericardial effusion (noninflammatory); J90 Pleural effusion, not elsewhere classified; I50.21 Acute systolic (congestive) heart failure; F15.10 Other stimulant abuse, uncomplicated; F10.10 Alcohol abuse, uncomplicated; Y90.0 Blood alcohol level of less than 20 mg/100 ml; N18.9 Chronic kidney disease, unspecified; F17.200 Nicotine dependence, unspecified, uncomplicated; I50.23 Acute on chronic systolic (congestive) heart failure; I42.0 Dilated cardiomyopathy; G47.33 Obstructive sleep apnea (adult) (pediatric); E66.01 Morbid (severe) obesity due to excess calories; Z83.3 Family history of diabetes mellitus; J98.11 Atelectasis; Z68.28 Body mass index [BMI] 28.0-28.9, adult
CPT/HCPCS: 36415; 71045-TC; 76770-TC; 80048-TC; 80053-TC; 80061-TC; 83735-TC; 83880; 84100-TC; 84484-TC; 85025-TC; 85378-TC; 87081-TC; 93307-TC; 93970-TC; C9803; G0378; G0480; J1644; J1940; J2060; J3490; J7050; Q9967

== ENCOUNTER 2021-03-15 04:59 | Emergency (ER) | payer OTHER ==
[~2021-03-15] VITALS: Ht 190.5 cm; Wt 104.3 kg
[2021-03-15 05:21] LABS: BILIRUBIN,URINE Negative (NEGATIVE); COLOR,URINE YELLOW (YELLOW); LEUKOCYTE ESTERASE ,URINE Negative (NEGATIVE); NITRITE, URINE Negative (NEGATIVE); PH,URINE 5.5 (5.0-8.0); PROTEIN,URINE 100 mg/dl (NEGATIVE); UGLUCOSE Negative (NEGATIVE); UROBILINOGEN,URINE 0.2 EU/dL (0.2)
--- NOTE | 2021-03-15 05:25 | NUR ---
PATIENT BIBSELF C/O GENERALIZED ABD PAIN FOR THE PAST DAY. PATIENT STATED HE WAS "UNABLE TO SLEEP DUE TO PAIN". PATIENT IS A/O X 4, RR EVEN AND UNLABORED, NO SOB NOTED. PATIENT CONNECETED TO CARDAIC AND POX MONITOR.
[2021-03-15 05:27] LABS: BASOPHILS # (AUTO) 0.1 K/uL (0.0-0.2); BASOPHILS % (AUTO) 0.9 % (0.0-2.0); EOSINOPHILS % (AUTO) 0.3 % (0.0-6.0); HEMATOCRIT 41 % (39-51); LYMPHOCYTES # (AUTO) 2.4 K/uL (0.8-4.8); LYMPHOCYTES % (AUTO) 24.5 % (20.0-44.0); MEAN CORPUSCULAR HGB CONC 32 g/dl (31.0-36.0); MEAN CORPUSCULAR VOLUME 95 fL (80-96); MONOCYTES # (AUTO) 0.7 K/uL (0.1-1.30); MONOCYTES % (AUTO) 6.9 % (2.0-12.0); NEUTROPHILS # (AUTO) 6.7 K/uL (1.8-8.9); NEUTROPHILS % (AUTO) 67.4 % (43.0-81.0); PLATELET COUNT (AUTO) 354 K/uL (150-450); RED BLOOD CELL COUNT(AUTO) 4.27 MIL/uL (4.5-6.0)
[2021-03-15 05:29] LABS: CALCIUM, SERUM 8.7 mg/dL (8.5-10.1); CREATININE 1.2 mg/dL (0.6-1.3); POTASSIUM 4.8 mmol/L (3.5-5.1)
[2021-03-15 05:35] LABS: ALBUMIN 3.2 g/dL (3.4-5.0); BILIRUBIN,DIRECT 0.3 mg/dL (0.0-0.2); BILIRUBIN,TOTAL 0.9 mg/dL (0.2-1.0); TOTAL PROTEIN, SERUM 6.7 g/dL (6.4-8.2)
[2021-03-15] MEDS ORDERED: FAMOTIDINE/PF INJ 20 MG/2 ML VIAL IV ONE ×2 (06:41→07:00)
[2021-03-15] MEDS ORDERED: MORPHINE SULFATE INJ 4 MG/ML DISP.SYRIN ONE (06:41)
[2021-03-15] MEDS ORDERED: ONDANSETRON HCL/PF 4 MG/2 ML VIAL ONE (06:41)
[2021-03-15] MEDS ORDERED: MORPHINE SULFATE INJ 2 MG/ML DISP.SYRIN IV ONE (07:00)
[2021-03-15] MEDS ORDERED: IV NS 0.9% 500 ML BAG IV ONE (07:00)
[2021-03-15] MEDS ORDERED: ONDANSETRON HCL/PF 4 MG/2 ML VIAL IV ONE (07:00)
[2021-03-15 07:50] VITALS: BP 118/67
--- NOTE | 2021-03-15 07:50 | NUR ---
Patient discharged to home in stable condition. Written and verbal after care instructions given. Patient verbalizes understanding of instruction.
== END 2021-03-15 07:51 | disposition home or self-care (01) ==
LOC: ER 05:06
DX: R10.84 Generalized abdominal pain (principal); I50.9 Heart failure, unspecified; F12.90 Cannabis use, unspecified, uncomplicated
CPT/HCPCS: 36415; 80048; 80076; 81003; 83690; 85025; 96361; 96374; 96375; 99284; J2270; J2405; J3490; J7030

== ENCOUNTER 2021-03-24 17:35 | Inpatient (IN) | payer OTHER ==
[~2021-03-24] VITALS: Ht 182.9 cm; Wt 93.9 kg
--- NOTE | 2021-03-24 17:41 | NUR ---
TO ER BED 2, BIB SELF C/O SHARP CHEST PAIN RADIATES TO BILATERAL ARM STARTED 2 HOURS AGO, AAOX3, BREATHING EVEN AND NON LABORED, CONNECTED TO MONITOR
[2021-03-24] MEDS ORDERED: MORPHINE SULFATE INJ 2 MG/ML DISP.SYRIN IV ONE (18:00)
[2021-03-24] MEDS ORDERED: ONDANSETRON HCL/PF 4 MG/2 ML VIAL IV ONE (18:00)
[2021-03-24] MEDS ORDERED: MORPHINE SULFATE INJ 4 MG/ML DISP.SYRIN ONE (18:04)
[2021-03-24] MEDS ORDERED: ONDANSETRON HCL/PF 4 MG/2 ML VIAL ONE (18:04)
[2021-03-24 18:08] LABS: BASOPHILS # (AUTO) 0.1 K/uL (0.0-0.2); BASOPHILS % (AUTO) 0.6 % (0.0-2.0); EOSINOPHILS % (AUTO) 0.5 % (0.0-6.0); HEMATOCRIT 40 % (39-51); HEMOGLOBIN 12.6 g/dL (13.5-17.5); LYMPHOCYTES # (AUTO) 1.3 K/uL (0.8-4.8); LYMPHOCYTES % (AUTO) 15.2 % (20.0-44.0); MEAN CORPUSCULAR HGB CONC 32 g/dl (31.0-36.0); MEAN CORPUSCULAR VOLUME 94 fL (80-96); MONOCYTES # (AUTO) 0.5 K/uL (0.1-1.30); MONOCYTES % (AUTO) 5.9 % (2.0-12.0); NEUTROPHILS # (AUTO) 6.5 K/uL (1.8-8.9); NEUTROPHILS % (AUTO) 77.8 % (43.0-81.0); PLATELET COUNT (AUTO) 294 K/uL (150-450); RED BLOOD CELL COUNT(AUTO) 4.22 MIL/uL (4.5-6.0); WHITE BLOOD COUNT (AUTO) 8.3 K/uL (4.3-11.0)
[2021-03-24 18:22] LABS: CALCIUM, SERUM 8.5 mg/dL (8.5-10.1); CREATININE 1.3 mg/dL (0.6-1.3); POTASSIUM 4.3 mmol/L (3.5-5.1)
--- NOTE | 2021-03-24 18:27 | NUR ---
MUD MIXER OPERATOR AT PT'S BEDSIDE
[2021-03-24] MEDS ORDERED: ASPIRIN 81 MG TAB.CHEW PO ONE (18:30)
[2021-03-24] MEDS ORDERED: ASPIRIN 81 MG TAB.CHEW ONE (18:32)
[2021-03-24] MEDS ORDERED: FURO40TA5 PO (18:35)
[2021-03-24] MEDS ORDERED: CARV3.122 PO (18:35)
[2021-03-24] MEDS ORDERED: VALS80TA31 PO (18:35)
[2021-03-24] MEDS ORDERED: FOLI0.4T6 PO (18:35)
[2021-03-24] MEDS ORDERED: THIA100T74 PO (18:36)
[2021-03-24] MEDS ORDERED: NITROGLYCERIN PACKET 1 GM PACKET ONE (18:38)
[2021-03-24] MEDS ORDERED: NITROGLYCERIN PACKET 1 GM PACKET TD ONE (19:00)
--- NOTE | 2021-03-24 19:00 | NUR ---
MOVE SHEET SUBMITTED.
--- NOTE | 2021-03-24 19:09 | NUR ---
DVT TECH AT PT'S BEDSIDE
--- NOTE | 2021-03-24 19:22 | NUR ---
COVID SWAB SENT TO LAB
[2021-03-24] MEDS ORDERED: FUROSEMIDE 20 MG/2 ML VIAL ONE (19:27)
[2021-03-24] MEDS ORDERED: FUROSEMIDE 20 MG/2 ML VIAL IV ONE (19:30)
--- NOTE | 2021-03-24 19:42 | NUR ---
MRSA SWAB COLLECTED AND SENT TO LAB. PATIENT'S BELONGINGS LIST DONE.
[2021-03-24] MEDS ORDERED: IOHEXOL-350 100 ML VIAL IV ONE (19:46)
--- NOTE | 2021-03-24 19:52 | NUR ---
CALLED SUP FOR TELE BED
--- NOTE | 2021-03-24 20:23 | NUR ---
URINE COLLECTED AND SENT TO LAB
--- NOTE | 2021-03-24 20:35 | NUR ---
BED ASSIGNMENT: 315-2
--- NOTE | 2021-03-24 20:37 | NUR ---
BED ASSIGNMENT UPDATE: 313-2
--- NOTE | 2021-03-24 21:20 | NUR ---
re paged Epic
--- NOTE | 2021-03-24 23:36 | NUR ---
REPORT GIVEN TO ANANT ON THIRD FLOOR
[2021-03-25] VITALS (7 sets, daily range): BP systolic 110–138; BP diastolic 66–96
[2021-03-25] MEDS ORDERED: Z GUARD REMEDY 2 OZ OINT TP PRN
[2021-03-25] MEDS ORDERED: ONDANSETRON HCL/PF 4 MG/2 ML VIAL IVP PRN
[2021-03-25] MEDS ORDERED: MAG HYDROX/AL HYDROX/SIMETH 30 ML UDC PO PRN
[2021-03-25] MEDS ORDERED: MAGNESIUM HYDROXIDE 30 ML UDC PO PRN
--- NOTE | 2021-03-25 | NUR ---
ADMISSION NOTES RECEIVED PT VIA GURNEY TRANSFERRED BY 2 PERSONNEL. AOx4. ABLE TO MAKE NEEDS KNOWN. ON RA AND TOLERATING WELL. NO SOB NOTED. NO S/SX OF RESPIRATORY DISTRESS NOTED. TELE MONITOR DETECTS SINUS TACHYCARDIA WITH RATE OF 101. IV ACCES IN LAC #18G. IV IS INTACT, PATENT AND FLUSHING WELL. PATIENT STATES PAIN OF 5/10. SAFETY PRECAUTIONS IN PLACE: BED IN LOWEST, LOCKED POSITION, SIDERAILS UPx2, AND BRAKES ON. TABLE AND CALL LIGHT WITHIN REACH. WILL CONTINUE TO MONITOR.
--- NOTE | 2021-03-25 00:01 | NUR ---
PT WAS TRANSFERRED TO [facility] UNDER ACLS
[2021-03-25] MEDS: ACETAMINOPHEN 325 MG TABLET PO PRN (00:27)
--- NOTE | 2021-03-25 00:59 | NUR ---
CALLED DR SINCE PAIN WAS 5/10 FOR STRONGER PAIN MEDICATION. DOCTOR PREFERRED TO NOT GIVE PAIN MEDICATION BECAUSE OF HISTORY OF DRUG USE.
[2021-03-25] MEDS ORDERED: HEPARIN SODIUM, PORCINE 5000 UNITS/1 ML VIAL IV ONE (02:00)
[2021-03-25] MEDS ORDERED: HEPARIN INFUSION/D5W 500 ML IV PRN (02:00)
--- NOTE | 2021-03-25 03:08 | NUR ---
DR. MCDANIELS ORDERED HEPARIN DRIP FOR ELEVATED TROPONIN OF 5.64. BEGAN HEPARIN DRIP @ MAX UNITS OF 1200 UNITS/HR @ 0300. NO S/SX OF BLEEDING. WILL CONTINUE TO MONITOR. Addendum: 03/25/21 at 0312 by CRISSY KUMARI RN PTT OF 28.8. PT OF 14.2 AND INR OF 1.38
--- NOTE | 2021-03-25 06:29 | NUR ---
RN CLOSING NOTES PT ASLEEP IN BED, AWAKENS TO VERBAL STIMULI. AOx4. ABLE TO MAKE NEEDS KNOWN. ON RA AND TOLERATING WELL. NO SOB NOTED. NO S/SX OF RESPIRATORY DISTRESS NOTED. TELE MONITOR DETECTS SINUS TACHYCARDIA WITH RATE OF 90-100S. IV ACCES IN LAC #18G RUNNING HEPARIN DRIP @ 1200 UNITS/HR. ALL NEEDS MET. PT KEPT CLEAN AND DRY. SAFETY PRECAUTIONS IN PLACE: BED IN LOWEST, LOCKED POSITION, SIDERAILS UPx2, AND BRAKES ON. TABLE AND CALL LIGHT WITHIN REACH. WILL ENDORSE TO ONCOMING SHIFT FOR BERE.
[2021-03-25 07:13] LABS: BASOPHILS # (AUTO) 0.1 K/uL (0.0-0.2); EOSINOPHILS % (AUTO) 0.8 % (0.0-6.0); HEMATOCRIT 36 % (39-51); HEMOGLOBIN 11.6 g/dL (13.5-17.5); LYMPHOCYTES # (AUTO) 2.8 K/uL (0.8-4.8); LYMPHOCYTES % (AUTO) 32.8 % (20.0-44.0); MEAN CORPUSCULAR HGB CONC 32 g/dl (31.0-36.0); MEAN CORPUSCULAR VOLUME 94 fL (80-96); MONOCYTES # (AUTO) 0.7 K/uL (0.1-1.30); MONOCYTES % (AUTO) 8.4 % (2.0-12.0); NEUTROPHILS # (AUTO) 4.8 K/uL (1.8-8.9); PLATELET COUNT (AUTO) 266 K/uL (150-450); RED BLOOD CELL COUNT(AUTO) 3.82 MIL/uL (4.5-6.0); WHITE BLOOD COUNT (AUTO) 8.4 K/uL (4.3-11.0)
--- NOTE | 2021-03-25 07:44 | NUR ---
GYM SUPERVISOR OPENING NOTES RECEIVED PATIENT IN BED, AWAKE, A/O X4., PATIENT ON ROOM AIR; BREATHING IS EVEN AND UNLABORED; NO SOB NOTED. NO COMPLAINS OF PAIN. PT ON EXTERNAL CONSTRUCTION SUPERINTENDENT READING ST LOW 100'S. IV ACCESS AT LAC#18 PATENT AND INTACT WITH HEPARIN RUNNING AT 1200 UNITS/HR. SAFETY PRECAUTIONS IN PLACE; BED IN LOW POSITION AND LOCKED, SIDE RAILS UP X2, CALL LIGHT WITHIN REACH. WILL CONTINUE TO MONITOR PATIENT.
[2021-03-25 07:58] LABS: CALCIUM, SERUM 8.7 mg/dL (8.5-10.1); CREATININE 1.2 mg/dL (0.6-1.3); MAGNESIUM 2.1 mg/dL (1.8-2.4); PHOSPHORUS 5.2 mg/dL (2.5-4.9)
[2021-03-25] MEDS: THIAMINE HCL 100 MG TABLET PO SCH (08:41)
[2021-03-25] MEDS: FUROSEMIDE 40 MG/4 ML VIAL IV SCH (08:41)
[2021-03-25] MEDS: VALSARTAN 80 MG TABLET PO SCH (08:42)
[2021-03-25] MEDS: FOLIC ACID 1 MG TABLET PO SCH (08:42)
[2021-03-25] MEDS: MORPHINE SULFATE INJ 2 MG/ML DISP.SYRIN IV PRN ×2 (08:52→19:00)
[2021-03-25] MEDS: CARVEDILOL 3.125 MG TABLET PO SCH ×2 (08:53→16:32)
[2021-03-25] MEDS ORDERED: LORAZEPAM INJ 2 MG/ML VIAL IV ONE (09:00)
[2021-03-25] MEDS ORDERED: CARVEDILOL 3.125 MG TABLET PO SCH (09:00)
[2021-03-25] MEDS ORDERED: IOHEXOL-350 100 ML VIAL IV ONE (10:03)
[2021-03-25] MEDS ORDERED: IV NS 0.9% 250 ML IV ONE (10:03)
[2021-03-25] MEDS ORDERED: METOPROLOL TARTRATE INJ 5 MG/5 ML AMPUL ONE ×2 (10:19→10:42)
[2021-03-25] MEDS ORDERED: IV NS 0.9% 500 ML IV ONE ×2 (10:20→16:30)
[2021-03-25] MEDS: METOPROLOL TARTRATE INJ 5 MG/5 ML AMPUL IVP PRN ×3 (10:20→10:30)
[2021-03-25] MEDS ORDERED: NITROGLYCERIN 0.4 MG/TAB BOTTLE SL ONE (10:30)
--- NOTE | 2021-03-25 10:34 | NUR ---
HUMANITIES TEACHER NOTES PT IS CURRENTLY OUT OF UNIT. PT WAS PICKED UP BY [facility] W[facility] AT [address] ANGIO SCAN.
--- NOTE | 2021-03-25 10:41 | NUR ---
Report given to ROHIT Junior for BERE. Patient transported back to [place] [id number] in stable condition.
--- NOTE | 2021-03-25 11:45 | NUR ---
DESKTOP ENGINEER NOTES PT WAS FOUND BY STAFF MEMBER ON HIS KNEES ON THE FLOOR. VITAL SIGNS TAKEN: BP 100/64 HR 77 RR 16 BS 127 O2 SAT 96% -97% ROOM AIR WITH LABORED BREATHING. NO INJURIES OR LOSS OF CONSCIOUSNESS. PER PT, HE SAT UP AND FELT DIZZY AND LEANED ON TABLE THEN KNEELED ON THE FLOOR. ASSISTED PT BACK TO BED SAFELY, GIVEN [address] SANDOVAL, SHIFT STACKER, AND IMELDA, CHARGE NURSE MADE AWARE WITH NO NEW ORDERS. AWAITING RESULTS FOR CT ANGIOGRAM AT THIS TIME. WILL CONTINUE TO MONITOR PATIENT CLOSELY.
--- NOTE | 2021-03-25 15:25 | NUR ---
WIRELESS STORE MANAGER NOTES INFORMED DR. SANDOVAL, GALLERY DIRECTOR RESULTS OF CTCA WITH NEW ORDERS TO DISCONTINUE HEPARIN DRIP AND CONTINUE DIURETICS. ORDERS READ BACK AND CARRIED OUT.
--- NOTE | 2021-03-25 18:47 | NUR ---
CHEMICAL EQUIPMENT REPAIRER CLOSING NOTES PATIENT IS IN ASLEEP IN BED, EASY TO AROUSE. PATIENT ON ROOM AIR WITH SUPPLEMENTAL OXYGEN VIA NC AT BESIDE PRN. BREATHING IS EVEN AND UNLABORED AT THIS TIME. PT ON EXTERNAL DRYING AND WINDING SUPERVISOR READING ST LOW 100'S. IV ACCESS AT LAC#18 PATENT AND INTACT. 0.9% NS 500MLS BOLUS GIVEN PER MD ORDER. SAFETY PRECAUTIONS MAINTAINED WITH BED IN LOW POSITION AND LOCKED, SIDE RAILS UP X2, CALL LIGHT WITHIN REACH. WILL ENDORSE CONTINUITY OF CARE TO ONCOMING SHIFT.
--- NOTE | 2021-03-25 20:00 | NUR ---
Patient is resting in bed at this time though easy to wake, states his pain is being well managed but has episodes of SOB requiring PRN oxygen and sleeping while sitting up in bed. No acute distress at this time. WIll continue to monitor.
[2021-03-26] VITALS (13 sets, daily range): BP systolic 99–120; BP diastolic 46–84
[2021-03-26] MEDS: MORPHINE SULFATE INJ 2 MG/ML DISP.SYRIN IV PRN ×2 (00:47→11:04)
--- NOTE | 2021-03-26 06:45 | NUR ---
Patient A&Ox4, denies SOB at this time and no signs of resp. distress. pt. states it comes and goes, but PRN O2 via 2L helps. O2 sat has been stable through episodes. C/o mid-chest pain extending to both arms x1 relieved by PRN morphine. On monitor pt. has been SR 80s-90s.
[2021-03-26 06:55] LABS: BASOPHILS # (AUTO) 0.1 K/uL (0.0-0.2); BASOPHILS % (AUTO) 1.1 % (0.0-2.0); EOSINOPHILS % (AUTO) 0.7 % (0.0-6.0); HEMATOCRIT 37 % (39-51); HEMOGLOBIN 11.7 g/dL (13.5-17.5); LYMPHOCYTES # (AUTO) 2.1 K/uL (0.8-4.8); LYMPHOCYTES % (AUTO) 28.5 % (20.0-44.0); MEAN CORPUSCULAR HGB CONC 32 g/dl (31.0-36.0); MEAN CORPUSCULAR VOLUME 93 fL (80-96); MONOCYTES # (AUTO) 0.6 K/uL (0.1-1.30); MONOCYTES % (AUTO) 8.3 % (2.0-12.0); NEUTROPHILS # (AUTO) 4.5 K/uL (1.8-8.9); NEUTROPHILS % (AUTO) 61.4 % (43.0-81.0); PLATELET COUNT (AUTO) 254 K/uL (150-450); RED BLOOD CELL COUNT(AUTO) 3.91 MIL/uL (4.5-6.0); WHITE BLOOD COUNT (AUTO) 7.4 K/uL (4.3-11.0)
[2021-03-26 07:40] LABS: ALBUMIN 2.9 g/dL (3.4-5.0); BILIRUBIN,TOTAL 0.8 mg/dL (0.2-1.0); CALCIUM, SERUM 8.6 mg/dL (8.5-10.1); CREATININE 1.2 mg/dL (0.6-1.3); MAGNESIUM 2.3 mg/dL (1.8-2.4); PHOSPHORUS 5.2 mg/dL (2.5-4.9); POTASSIUM 4.1 mmol/L (3.5-5.1); TOTAL PROTEIN, SERUM 5.9 g/dL (6.4-8.2)
--- NOTE | 2021-03-26 07:51 | NUR ---
FITNESS FLOOR ATTENDANT OPENING NOTE Patient in bed awake, A.O x 4. On O2 PRN at 2LPM, no SOB or s/s of distress noted. IV access on LAC #18G, intact and patent. On tele monitoring, SR at 99. Safety precautions in place: bed in low, locked position; siderails up x 2; call light within reach. Will continue to monitor.
--- NOTE | 2021-03-26 08:40 | NUR ---
RN NOTE Received call from lab for a critical value, Troponin of 41.1. Called Dr. Aiken's office to report value, waiting for call back.
[2021-03-26] MEDS: FUROSEMIDE 40 MG/4 ML VIAL IV SCH (08:48)
[2021-03-26] MEDS: CARVEDILOL 3.125 MG TABLET PO SCH ×2 (08:49→18:34)
[2021-03-26] MEDS: FOLIC ACID 1 MG TABLET PO SCH (08:49)
[2021-03-26] MEDS: VALSARTAN 80 MG TABLET PO SCH (08:49)
[2021-03-26] MEDS: THIAMINE HCL 100 MG TABLET PO SCH (08:50)
--- NOTE | 2021-03-26 11:00 | NUR ---
RN NOTE INFORMED DR SANDOVAL REGARDING TROPONIN LEVEL. NO NEW ORDERS.
--- NOTE | 2021-03-26 12:20 | NUR ---
RN NOTE OBTAINED TELEPHONE CONSENT FOR ANESTHESIA FROM MIKAELA LOREDO (BROTHER) [phone]. ELHAM JOHNSON RN SIGNED A WITNESS.
--- NOTE | 2021-03-26 13:53 | NUR ---
RN NOTE REPORT GIVEN TO ROHIT MURPHY FOR BERE
--- NOTE | 2021-03-26 14:16 | NUR ---
RN NOTE PATIENT WAS TRANSFERRED STABLE TO ICU ROOM 254 VIA BED.
--- NOTE | 2021-03-26 14:20 | NUR ---
SILL WORKER RECEIVED PT BY [place] WITH MONITOR FROM 3W FOR C/O CHEST PAIN WITH NSTEMI, AND DOBUTAMINE INFUSION. PT CURRENTLY PAINFREE AFTER BEING GIVEN MS 2 MG WHILE IN 3W, PLACED ON O2 AT 2L NC. AWAITING DOBUTAMINE FROM PHARMACY. PT STATED THAT HE CAME INTO THE HOSPITAL FOR INCREASING CHEST PAIN. PT UNABLE TO STATE WHY HE WAS BROUGHT TO THE ICU.
[2021-03-26] MEDS: DOBUTamine 500 MG in IV D5W 210 ML IV PRN (14:37)
--- NOTE | 2021-03-26 16:00 | NUR ---
SALES CONTRACT ADMINISTRATOR TOLERATING DOBUTAMINE DRIP AT 5 MCG/KG/MIN. DENIES CHEST PAIN.
--- NOTE | 2021-03-26 18:00 | NUR ---
CATHEAD OPERATOR VSS. DENIES CHEST PAIN.
--- NOTE | 2021-03-26 19:30 | NUR ---
RN OPENING NOTES: RECEIVED PT A/OX4 IN BED IN NO S/SX OF ACUTE DISTRESS AT THIS TIME. NO SOB NOTED. PATIENT'S BREATHING IS EVEN AND UNLABORED. PATIENT IS ON 2L OF OXYGEN VIA NC; TOLERATING WELL. PATIENT ON TELE MONITORING READING SINUS RHYTHM HR IS @92 AT THE TIME OF RECEIVED. PATIENT ON CARDIAC DIET; TOLERATES WELL. NOTED IV SITE ON L AC#18 L UA #20; PATENT, INTACT AND FLUSHING WELL; NO S/S OF INFECTION OR INFILTRATION. WITH DOBUTAMINE DRIP @5MCG/KG/MIN MONITORED PER PROTOCOL. SAFETY MEASURES HAVE BEEN PROVIDED AND IMPLEMENTED. PATIENT BED ALARM IS ON. HEAD OF BED ELEVATED. BED IS LOCKED, IN LOWEST POSITION AND SIDE RAILS UP. CALL LIGHT WITHIN REACH OF THE PATIENT. APPLICABLE ISOLATION PRECAUTIONS IN PLACE. WILL CONTINUE TO MONITOR AND REASSESS FOR ANY CHANGES AND WILL CARRY OUT ANY ONGOING AND ACTIVE MD ORDER.
--- NOTE | 2021-03-26 22:45 | NUR ---
RN NOTES DR. SANDOVAL MADE AWARE OF TROPONIN LEVEL TODAY @41.068 AND VERIFIED FOR ANY ORDERS, ALSO MENTIONED THAT HEPARIN DRIP HAS BEEN DCd YESTERDAY. SAID NO NEW ORDERS AND DC ANTICOAGULATION. RN ACKNOWLEDGED AND DUMPING MACHINE OPERATOR MADE AWARE.
[2021-03-27] VITALS (32 sets, daily range): BP systolic 100–132; BP diastolic 55–105
[2021-03-27] MEDS: DOBUTamine 500 MG in IV D5W 210 ML IV PRN ×2 (03:11→16:35)
[2021-03-27] MEDS: ACETAMINOPHEN 325 MG TABLET PO PRN (03:31)
--- NOTE | 2021-03-27 06:52 | NUR ---
RN CLOSING NOTE: PATIENT REMAINS IN ROOM IN NO SIGNS OF RESPIRATORY DISTRESS, PATIENT STILL ON 2L OF 02 VIA NC ;TOLERATING WELL SATURATING @ >95% SP02. SAFETY MEASURES IMPLEMENTED, BED IN LOWEST POSITION, LOCKED, SIDE RAILS UP, CALL LIGHT WITHIN REACH. ALL NEEDS AND ORDERS ADDRESSED DURING THE SHIFT. IV ACCESS MAINTAINED INTACT, SECURED AND FLUSHING WELL. ALL DUE MEDS GIVEN ORDERED & SCHEDULED ; PATIENT TOLERATED WELL. PATIENT KEPT CLEAN AND COMFORTABLE WITHIN THE SHIFT. PATIENT ENDORSED TO INCOMING SHIFT RN WITH STABLE VITAL SIGN AND FOR CONTINUITY OF CARE.
--- NOTE | 2021-03-27 07:30 | NUR ---
RN NOTES PT FOUND IN PRONE POSITION DISPLAYING NO S/S OF ACUTE DISTRESS, PT ENDORSES NO PAIN AND BREATHING IS EVEN AND UNLABORED ON 2L O2 NC. URINAL AT BEDSIDE TABLE. PT IS A&OX4. L AC 18G AND L UA 20G IV PATIENT AND INTACT. S1S2 NOTED, PULSES PALAPTED IN ALL FOUR EXTREMITIES. SAFETY MEASURES IN PLACE, BED LOCKED AND IN LOWEST POSITION, SIDE RAILS UPX2, CALL LIGHT WITHIN REACH, PT INSTRUCTED TO CALL FOR ASSISTANCE.
[2021-03-27] MEDS: FUROSEMIDE 100 MG/10 ML VIAL IV SCH ×3 (08:10→16:26)
[2021-03-27] MEDS: ENOXAPARIN SODIUM 40 MG/0.4 ML DISP.SYRIN SQ SCH (08:20)
[2021-03-27 08:53] LABS: BASOPHILS % (AUTO) 0.6 % (0.0-2.0); EOSINOPHILS % (AUTO) 1.2 % (0.0-6.0); HEMATOCRIT 33 % (39-51); HEMOGLOBIN 10.7 g/dL (13.5-17.5); LYMPHOCYTES # (AUTO) 2.1 K/uL (0.8-4.8); LYMPHOCYTES % (AUTO) 28.8 % (20.0-44.0); MEAN CORPUSCULAR HGB CONC 32 g/dl (31.0-36.0); MEAN CORPUSCULAR VOLUME 94 fL (80-96); MONOCYTES # (AUTO) 0.7 K/uL (0.1-1.30); MONOCYTES % (AUTO) 9.7 % (2.0-12.0); NEUTROPHILS # (AUTO) 4.4 K/uL (1.8-8.9); NEUTROPHILS % (AUTO) 59.7 % (43.0-81.0); PLATELET COUNT (AUTO) 212 K/uL (150-450); RED BLOOD CELL COUNT(AUTO) 3.57 MIL/uL (4.5-6.0); WHITE BLOOD COUNT (AUTO) 7.4 K/uL (4.3-11.0)
[2021-03-27] MEDS: CARVEDILOL 3.125 MG TABLET PO SCH ×2 (09:00→16:41)
[2021-03-27 09:03] LABS: CALCIUM, SERUM 8.1 mg/dL (8.5-10.1); CREATININE 1.1 mg/dL (0.6-1.3); POTASSIUM 3.6 mmol/L (3.5-5.1)
[2021-03-27 09:09] LABS: ALBUMIN 2.6 g/dL (3.4-5.0); BILIRUBIN,TOTAL 0.7 mg/dL (0.2-1.0); MAGNESIUM 2.2 mg/dL (1.8-2.4); PHOSPHORUS 4.5 mg/dL (2.5-4.9); TOTAL PROTEIN, SERUM 5.6 g/dL (6.4-8.2)
[2021-03-27] MEDS: VALSARTAN 80 MG TABLET PO SCH (09:26)
[2021-03-27] MEDS: THIAMINE HCL 100 MG TABLET PO SCH (09:26)
[2021-03-27] MEDS: FOLIC ACID 1 MG TABLET PO SCH (09:26)
--- NOTE | 2021-03-27 15:30 | NUR ---
CRITICAL LAB VALUE AND MD COMMUNICATION CRITICAL LAB VALUE, PT TROPONIN I IS 38.003 TAKEN BY ROHIT WATTERS AND RELAYED TO PRIMARY RN. PRIMARY RN INFORMED DR. SANDOVAL. ACKNOWLEDGED AND GAVE NO NEW ORDERS.
--- NOTE | 2021-03-27 19:05 | NUR ---
RN NOTES PT FOUND SUPINE DISPLAYING NO S/S OF DISTRESS, PT ENDORSES NO PAIN AND BREATHING IS EVEN AND UNLABORED ON 2L O2 NC. PT IS A&OX4. L AC 18G L UA 20G IV PATIENT AND INTACT. S1S2 NOTED, PULSES PALPATED IN ALL FOUR EXTREMITIES. VSS, SBAR AND REPORT GIVEN TO WEAVING SUPERVISOR RN. ALL QUESTIONS ANSWERED. SAFETY MEASURES IN PLACE, BED LOCKED AND IN LOWEST POSITION, SIDE RAILS UPX2, CALL LIGHT WITHIN REACH, PT INSTRUCTED TO CALL FOR ASSISTANCE. PT ENDORSED IN STABLE CONDITION FOR BERE.
--- NOTE | 2021-03-27 20:15 | NUR ---
ICU/RUBBER GASKET INSPECTOR TRIMMER PT UP TO BEDSIDE COMMODE, HAD A LARGE LOOSE BM. THEN ASST. BACK TO BED. WILL CONTINUE TO MONITOR THIS PT.
--- NOTE | 2021-03-27 22:30 | NUR ---
ICU/BUTTONHOLE MARKER PT WAS GIVEN 240MG OF LASIX, POTASSIUM AND MAG WERE NOT REDRAWN, PER DAY NURSE PT HAD URINE OUTPUT OF 9.5 LITERS OF URINE. STAT LABS WERE PLACED TO CHECK THIS.
--- NOTE | 2021-03-27 23:30 | NUR ---
ICU/CARE PROFESSIONAL MAG. 2.3 AND POTASSIUM 3.5 NO CRITICAL VALUES.
[2021-03-27] MEDS: ZOLPIDEM TARTRATE 5 MG TABLET PO PRN (23:45)
[2021-03-28] VITALS (35 sets, daily range): BP systolic 90–136; BP diastolic 41–96
--- NOTE | 2021-03-28 00:30 | NUR ---
ICU/IMPLANT POLISHER PT WAS GIVEN AN AMBIEN TO HELP HIM SLEEP. CALL LIGHT WITHIN REACH. NO ACUTE DISTRESS SEEN AT THIS TIME.
[2021-03-28 05:04] LABS: BASOPHILS % (AUTO) 0.7 % (0.0-2.0); EOSINOPHILS % (AUTO) 1.1 % (0.0-6.0); HEMATOCRIT 35 % (39-51); HEMOGLOBIN 11.4 g/dL (13.5-17.5); LYMPHOCYTES # (AUTO) 1.6 K/uL (0.8-4.8); LYMPHOCYTES % (AUTO) 23.7 % (20.0-44.0); MEAN CORPUSCULAR HGB CONC 33 g/dl (31.0-36.0); MEAN CORPUSCULAR VOLUME 93 fL (80-96); MONOCYTES # (AUTO) 0.5 K/uL (0.1-1.30); MONOCYTES % (AUTO) 7.7 % (2.0-12.0); NEUTROPHILS # (AUTO) 4.5 K/uL (1.8-8.9); NEUTROPHILS % (AUTO) 66.8 % (43.0-81.0); PLATELET COUNT (AUTO) 223 K/uL (150-450); RED BLOOD CELL COUNT(AUTO) 3.75 MIL/uL (4.5-6.0); WHITE BLOOD COUNT (AUTO) 6.8 K/uL (4.3-11.0)
[2021-03-28 05:23] LABS: ALBUMIN 2.9 g/dL (3.4-5.0); BILIRUBIN,TOTAL 0.8 mg/dL (0.2-1.0); CALCIUM, SERUM 8.5 mg/dL (8.5-10.1); MAGNESIUM 2.1 mg/dL (1.8-2.4); PHOSPHORUS 4.4 mg/dL (2.5-4.9); POTASSIUM 3.2 mmol/L (3.5-5.1); TOTAL PROTEIN, SERUM 6.1 g/dL (6.4-8.2)
[2021-03-28] MEDS: DOBUTamine 500 MG in IV D5W 210 ML IV PRN ×2 (07:03→20:48)
--- NOTE | 2021-03-28 07:37 | NUR ---
precision agriculture specialist note patient in bed , resting in bed at this time,on 2l nc saturation 95%, on tele monitor sr hr 87, on dobutamine 5 ncg \kg\min as ordered, bed in lowest and locked position,will monitor
[2021-03-28] MEDS: THIAMINE HCL 100 MG TABLET PO SCH (08:32)
[2021-03-28] MEDS: CARVEDILOL 3.125 MG TABLET PO SCH ×2 (08:33→16:14)
[2021-03-28] MEDS: ENOXAPARIN SODIUM 40 MG/0.4 ML DISP.SYRIN SQ SCH (08:33)
[2021-03-28] MEDS: FOLIC ACID 1 MG TABLET PO SCH (08:33)
--- NOTE | 2021-03-28 08:56 | NUR ---
registered nurse cardiovascular icu note reported to dr hardin troponin 41.706 no new order given at this time
--- NOTE | 2021-03-28 08:58 | NUR ---
agricultural equipment test engineer note seen by dr carrera, reported that thart last nighs restless no new order given at this time ,will cont to monitor
[2021-03-28] MEDS: VALSARTAN 80 MG TABLET PO SCH (09:04)
[2021-03-28] MEDS: POTASSIUM CHLORIDE 20 MEQ TAB.PRT.SR PO SCH ×2 (09:22→10:17)
[2021-03-28] MEDS: SPIRONOLACTONE 25 MG TABLET PO SCH (09:23)
--- NOTE | 2021-03-28 11:30 | NUR ---
LEVEL VIAL CURVATURE GAUGER NOTE ROUNDS MADE, PATIENT IN BED ,ALL NEED ATTENDED ,RESTING COMFORTABLY AT THIS TIME
--- NOTE | 2021-03-28 13:08 | NUR ---
UNHAIRER NOTE HAVING LUNCH , ABLE TO EAT SELF CALL LIGHT WITHIN REACH , ABLE TO URINATE , CALL LIGHT WITHIN REACH
--- NOTE | 2021-03-28 14:19 | NUR ---
curriculum developer note up on chair , not in distress , all needs attended
--- NOTE | 2021-03-28 14:53 | NUR ---
agriculture mechanic note trop 44.[address] hardin ,no new order given at this time Addendum: 03/28/21 at 1531 by ALEJANDRO METCALF RN called to rifle case repairer, spoke with brock for transfer to higher level care stated that she is working on it
--- NOTE | 2021-03-28 17:00 | NUR ---
agricultural economics teacher note covid test rapid taken as ordered
--- NOTE | 2021-03-28 17:47 | NUR ---
broker agricultural produce note family at bedside undated patient condition, faxed to [facility] result for covid -19
--- NOTE | 2021-03-28 18:10 | NUR ---
curriculum writer note called to pharmacy, notified that dobutamine drip will be over soon stated that will bring closer to 9pm, will endorse to next shift rn
--- NOTE | 2021-03-28 18:23 | NUR ---
CHIMNEY BUILDER HELPER NOTE PATIENT IN BED , ALL NEEDS ATTENDED , FAMILY AT BEDSIDE, ON L NC, NO SOB NOTED ,SATURATION 98% AT THIS TIME, LT FA HL INTACT AND FLUSHED WELL , ON DOBUTAMINE DRIP ORDERED, ABLE TO EAT WELL DINNER CALL LIGHT WITHIN REACH , BED IN LOWEST AND LOCKED POSITION , WILL CONT TO MONITOR, AWAITING FOR CALL FROM ACUTE [facility]OSP[facility] WITH POSABLE TRANSFER TO [facility]
--- NOTE | 2021-03-28 19:10 | NUR ---
RN NOTE RECEIVED PATIENT IN BED RESTING ALERT ORIENTED X4 VERBALLY RESPONSIVE ON 2L OXYGEN VIA NASAL CANNULA O:97% IV SITE IS ON LEFT FOREARM INTACT PATENT AND ON DOBUTAMINE DRIP 5MCG/KG/MIN CONTIENT BOWEL/BLADDER,SAFETY MEASURE IMPLEMENT BED IN LOW POSITION AND LOCKED CALL LIGHT WITHIN REACH CONTINUE TO MONITOR.
[2021-03-28] MEDS: ZOLPIDEM TARTRATE 5 MG TABLET PO PRN (21:36)
[2021-03-29] VITALS (30 sets, daily range): BP systolic 93–134; BP diastolic 17–86
[2021-03-29] MEDS: MORPHINE SULFATE INJ 2 MG/ML DISP.SYRIN IV PRN (01:19)
--- NOTE | 2021-03-29 01:19 | NUR ---
RN NOTE MORPHINE 2MG/ML PRN IV GIVEN FOR PAIN CONTINUE TO MONITOR.
--- NOTE | 2021-03-29 06:47 | NUR ---
RN NOTE PATIENT REMAINS ALERT ORIENTED X4 VERBALLY RESPONSIVE ON 2L OXYGEN VIA NASAL CANNULA O2:97% NO SOB NOT ACUTE DISTRESS NOTED,PATIENT IS ON DOBUTAMINE 5MCG/KG/MIN ENDORSE NEXT COMING SHIFT FOR CONTINUATION OF CARE.
--- NOTE | 2021-03-29 07:30 | NUR ---
MEDICAL ECONOMICS CONSULTANT OPENING NOTES Patient received asleep in bed and on 2liters 02 via n/c HOB kept elevated. Patient noted witgh left forearm iv access running Dobutamine at 5 mcg/kg/min. Patient uses urinal and bedside commode. Will continue to monitor. Call light with in reach. Bed is in lowest and locked position.
[2021-03-29] MEDS: SPIRONOLACTONE 25 MG TABLET PO SCH (08:08)
[2021-03-29] MEDS: THIAMINE HCL 100 MG TABLET PO SCH (08:08)
[2021-03-29] MEDS: FOLIC ACID 1 MG TABLET PO SCH (08:08)
[2021-03-29] MEDS: CARVEDILOL 3.125 MG TABLET PO SCH ×2 (08:08→17:03)
[2021-03-29] MEDS: ENOXAPARIN SODIUM 40 MG/0.4 ML DISP.SYRIN SQ SCH (08:09)
[2021-03-29] MEDS: VALSARTAN 80 MG TABLET PO SCH (08:09)
[2021-03-29 08:35] LABS: BASOPHILS # (AUTO) 0.1 K/uL (0.0-0.2); BASOPHILS % (AUTO) 1.1 % (0.0-2.0); EOSINOPHILS % (AUTO) 1.8 % (0.0-6.0); HEMATOCRIT 34 % (39-51); HEMOGLOBIN 11.4 g/dL (13.5-17.5); LYMPHOCYTES # (AUTO) 1.9 K/uL (0.8-4.8); LYMPHOCYTES % (AUTO) 27.8 % (20.0-44.0); MEAN CORPUSCULAR HGB CONC 33 g/dl (31.0-36.0); MEAN CORPUSCULAR VOLUME 93 fL (80-96); MONOCYTES # (AUTO) 0.5 K/uL (0.1-1.30); MONOCYTES % (AUTO) 7.4 % (2.0-12.0); NEUTROPHILS # (AUTO) 4.2 K/uL (1.8-8.9); NEUTROPHILS % (AUTO) 61.9 % (43.0-81.0); PLATELET COUNT (AUTO) 218 K/uL (150-450); RED BLOOD CELL COUNT(AUTO) 3.71 MIL/uL (4.5-6.0); WHITE BLOOD COUNT (AUTO) 6.7 K/uL (4.3-11.0)
[2021-03-29 10:10] LABS: ALBUMIN 2.8 g/dL (3.4-5.0); BILIRUBIN,TOTAL 0.8 mg/dL (0.2-1.0); CALCIUM, SERUM 8.6 mg/dL (8.5-10.1); MAGNESIUM 2.1 mg/dL (1.8-2.4); TOTAL PROTEIN, SERUM 6.1 g/dL (6.4-8.2)
[2021-03-29] MEDS: DOBUTamine 500 MG in IV D5W 210 ML IV PRN ×3 (13:00→13:47)
--- NOTE | 2021-03-29 19:09 | NUR ---
MEDICAL DOSIMETRIST CLOSING NOTES Patient is awake and in bed and on 2liters 02 via n/c HOB kept elevated. Patient noted with left upper arm midline iv access running Dobutamine at 5 mcg/kg/min. Patient uses urinaL.Will continue to monitor. Call light with in reach. Bed is in lowest and locked position.Endorsed to next shift for BERE.
[2021-03-29] MEDS: ZOLPIDEM TARTRATE 5 MG TABLET PO PRN (22:54)
--- NOTE | 2021-03-29 23:50 | NUR ---
ICU/OUTSIDE FOOD SERVER PT WAS GIVEN AN PRN AMBIEN TO HELP HIM SLEEP. CALL LIGHT WITHIN REACH. NO ACUTE DISTRESS SEEN AT THIS TIME.
[2021-03-30] VITALS (25 sets, daily range): BP systolic 89–136; BP diastolic 35–91
[2021-03-30] MEDS ORDERED: LORAZEPAM INJ 2 MG/ML VIAL IV ONE
--- NOTE | 2021-03-30 00:09 | NUR ---
ICU/PRODUCT BLENDING SUPERVISOR ATIVAN PRN WAS ORDERED X1 FOR AGITATION DESPITE GIVEN AMBIEN 5MG PRN. WILL CONTINUE TO MONITOR THIS PT. CALL LIGHT WITHIN REACH.
[2021-03-30] MEDS: DOBUTamine 500 MG in IV D5W 210 ML IV PRN ×2 (02:31→16:39)
--- NOTE | 2021-03-30 07:30 | NUR ---
BOOK SALESMAN OPENING NOTES Patient received asleep in bed and on 2 liters 02 via n/c HOB kept elevated. Patient noted with lef ac iv access midline 18 gauze running Dobutamine at 5 mcg/kg/min. Patient uses urinal and bedside commode. Will continue to monitor. Call light with in reach. Bed is in lowest and locked position.Per report patient was anxious at night and ativan was given. Will follow up with MD. Call light within reach.
[2021-03-30] MEDS: CARVEDILOL 3.125 MG TABLET PO SCH ×2 (08:27→16:35)
[2021-03-30] MEDS: SPIRONOLACTONE 25 MG TABLET PO SCH (08:27)
[2021-03-30] MEDS: THIAMINE HCL 100 MG TABLET PO SCH (08:28)
[2021-03-30] MEDS: FOLIC ACID 1 MG TABLET PO SCH (08:28)
[2021-03-30] MEDS: VALSARTAN 80 MG TABLET PO SCH (08:28)
[2021-03-30] MEDS: ENOXAPARIN SODIUM 40 MG/0.4 ML DISP.SYRIN SQ SCH (08:31)
[2021-03-30] MEDS: POTASSIUM CHLORIDE 20 MEQ TAB.PRT.SR PO SCH ×3 (09:02→11:13)
[2021-03-30] MEDS: FUROSEMIDE 40 MG/4 ML VIAL IV SCH ×3 (09:02→17:11)
--- NOTE | 2021-03-30 13:19 | NUR ---
Dr Aiken made aware regarding patient being anxious at night and received orders for ativan 1 mg iv q4h prn
--- NOTE | 2021-03-30 18:43 | NUR ---
CARDROOM MANAGER CLOSING NOTES Patient is awake and in bed and on 2liters 02 via n/c HOB kept elevated. Patient noted with left upper arm midline iv access running Dobutamine at 5 mcg/kg/min. Patient uses urinaL and noted with output of 4900 cc during shift.Patient used commode x 2 for bm during shift.Will continue to monitor. Call light with in reach. Bed is in lowest and locked position.Will endorse to next shift for BERE.
--- NOTE | 2021-03-30 19:00 | NUR ---
Patient had another bm at the end of the shift along with urine output oif 700 cc.
[2021-03-30] MEDS: LORAZEPAM INJ 2 MG/ML VIAL IV PRN (22:50)
--- NOTE | 2021-03-30 22:50 | NUR ---
ICU/MEDICAL REVIEWER PT APPEARS TO BE VERY ANXIOUS WITH INCREASED HEART RATE. CHARGE NURSE MADE AWARE, PRN ATIVAN 1MG IVP WAS GIVEN FOR THIS. CALL LIGHT WITHIN REACH WILL CONTINUE TO MONITOR THIS PT, HIS ANXIETY, AND INCREASED HEART RATE.
[2021-03-30] MEDS: ZOLPIDEM TARTRATE 5 MG TABLET PO PRN (23:35)
--- NOTE | 2021-03-30 23:50 | NUR ---
ICU/METAL TEMPLATE MAKER PT IS UP, UNABLE TO SLEEP, ASKED FOR AMBIEN TO SLEEP. PRN AMBIEN 5MG GIVEN PO FOR SLEEP, PER PTS REQUEST. CALL LIGHT WITHIN REACH, WILL CONTINUE TO MONITOR THIS PT.
[2021-03-31] VITALS (28 sets, daily range): BP systolic 97–131; BP diastolic 27–73
--- NOTE | 2021-03-31 02:00 | NUR ---
ICU/MACHINE ROOM OPERATOR PT APPEARS TO BE ASLEEP, NO SIGNS OF DISTRESS. CALL LIGHT WITHIN REACH.
[2021-03-31] MEDS: DOBUTamine 500 MG in IV D5W 210 ML IV PRN ×2 (03:26→17:17)
[2021-03-31 05:54] LABS: BASOPHILS # (AUTO) 0.1 K/uL (0.0-0.2); BASOPHILS % (AUTO) 0.8 % (0.0-2.0); EOSINOPHILS % (AUTO) 1.8 % (0.0-6.0); HEMATOCRIT 34 % (39-51); HEMOGLOBIN 11.2 g/dL (13.5-17.5); LYMPHOCYTES % (AUTO) 28.5 % (20.0-44.0); MEAN CORPUSCULAR HGB CONC 33 g/dl (31.0-36.0); MEAN CORPUSCULAR VOLUME 92 fL (80-96); MONOCYTES # (AUTO) 0.6 K/uL (0.1-1.30); NEUTROPHILS # (AUTO) 4.2 K/uL (1.8-8.9); NEUTROPHILS % (AUTO) 59.9 % (43.0-81.0); PLATELET COUNT (AUTO) 237 K/uL (150-450); RED BLOOD CELL COUNT(AUTO) 3.73 MIL/uL (4.5-6.0)
[2021-03-31 06:20] LABS: BILIRUBIN,TOTAL 0.6 mg/dL (0.2-1.0); CALCIUM, SERUM 8.6 mg/dL (8.5-10.1); MAGNESIUM 2.3 mg/dL (1.8-2.4); PHOSPHORUS 5.3 mg/dL (2.5-4.9); POTASSIUM 4.2 mmol/L (3.5-5.1); TOTAL PROTEIN, SERUM 6.5 g/dL (6.4-8.2)
--- NOTE | 2021-03-31 07:10 | NUR ---
ICU OPENING NOTES RECEIVED PT RESTING IN BED. ON 2L O2 VIA NC SATURATION @99%. NO SOB OR ANY S/S OF DISTRESS. SR ON MONITOR. TEENA MIDLINE INTACT AND PATENT, RUNNING DOBUTAMINE @5MCG. INFUSING WELL. USES URINAL AND BEDSIDE COMMODE. SKIN IS INTACT. CARDIAC DIET. NO PAIN REPORTED AT THIS TIME. SAFETY MEASURES IN PLACE. CALL LIGHT WITHIN REACH. BED LOCKED AND IN LOWEST POSITION WITH SIDE RAILS UP X2. WILL CONTINUE TO MONITOR.
[2021-03-31] MEDS: THIAMINE HCL 100 MG TABLET PO SCH (08:18)
[2021-03-31] MEDS: SPIRONOLACTONE 25 MG TABLET PO SCH (08:18)
[2021-03-31] MEDS: CARVEDILOL 3.125 MG TABLET PO SCH ×2 (08:18→16:36)
[2021-03-31] MEDS: FOLIC ACID 1 MG TABLET PO SCH (08:19)
[2021-03-31] MEDS: VALSARTAN 80 MG TABLET PO SCH (08:19)
[2021-03-31] MEDS: ENOXAPARIN SODIUM 40 MG/0.4 ML DISP.SYRIN SQ SCH (08:19)
[2021-03-31] MEDS: FUROSEMIDE 40 MG/4 ML VIAL IV SCH ×3 (08:27→16:36)
[2021-03-31] MEDS ORDERED: POTASSIUM CHLORIDE 20 MEQ TAB.PRT.SR PO SCH (09:00)
--- NOTE | 2021-03-31 18:56 | NUR ---
ICU CLOSING NOTES NO SIGNIFICANT CHANGES THROUGHOUT THE SHIFT. NO SOB. NO PAIN REPORTED AT THIS TIME. ALL DUE MEDS GIVEN. NEEDS ATTENDED. KEPT CLEAN AND COPMFORTABLE. SAFETY MEASURES IN PLACE. CALL LIGHT WITHIN REACH. WILL ENDORSE TO NIGHT RN FOR BERE.
[2021-03-31] MEDS: LORAZEPAM INJ 2 MG/ML VIAL IV PRN (22:09)
--- NOTE | 2021-03-31 22:30 | NUR ---
ICU/MANAGER INTENSIVE CARE PT APPEARS TO BE VERY ANXIOUS WITH INCREASED HEART RATE. CHARGE NURSE MADE AWARE, PRN ATIVAN 1MG IVP WAS GIVEN FOR THIS. CALL LIGHT WITHIN REACH WILL CONTINUE TO MONITOR THIS PT, HIS ANXIETY, AND INCREASED HEART RATE.
[2021-03-31] MEDS: ZOLPIDEM TARTRATE 5 MG TABLET PO PRN (23:37)
[2021-04-01] VITALS (32 sets, daily range): BP systolic 76–149; BP diastolic 23–96
--- NOTE | 2021-04-01 00:05 | NUR ---
ICU/COLLECTION COORDINATOR PT IS UP, UNABLE TO SLEEP, ASKED FOR AMBIEN TO SLEEP. PRN AMBIEN 5MG GIVEN PO FOR SLEEP, PER PTS REQUEST. CALL LIGHT WITHIN REACH, WILL CONTINUE TO MONITOR THIS PT.
--- NOTE | 2021-04-01 02:30 | NUR ---
ICU/SUPERVISOR STEFFEN HOUSE PT APPEARS TO BE ASLEEP, NO SIGNS OF DISTRESS. CALL LIGHT WITHIN REACH.
[2021-04-01] MEDS: DOBUTamine 500 MG in IV D5W 210 ML IV PRN (03:55)
[2021-04-01 04:34] LABS: BASOPHILS # (AUTO) 0.1 K/uL (0.0-0.2); EOSINOPHILS % (AUTO) 2.5 % (0.0-6.0); HEMATOCRIT 37 % (39-51); HEMOGLOBIN 12.2 g/dL (13.5-17.5); LYMPHOCYTES # (AUTO) 1.9 K/uL (0.8-4.8); LYMPHOCYTES % (AUTO) 26.9 % (20.0-44.0); MEAN CORPUSCULAR HGB CONC 33 g/dl (31.0-36.0); MEAN CORPUSCULAR VOLUME 92 fL (80-96); MONOCYTES # (AUTO) 0.7 K/uL (0.1-1.30); MONOCYTES % (AUTO) 9.4 % (2.0-12.0); NEUTROPHILS # (AUTO) 4.2 K/uL (1.8-8.9); NEUTROPHILS % (AUTO) 60.2 % (43.0-81.0); PLATELET COUNT (AUTO) 263 K/uL (150-450); RED BLOOD CELL COUNT(AUTO) 4.04 MIL/uL (4.5-6.0); WHITE BLOOD COUNT (AUTO) 6.9 K/uL (4.3-11.0)
[2021-04-01 04:51] LABS: BILIRUBIN,TOTAL 0.4 mg/dL (0.2-1.0); CALCIUM, SERUM 8.7 mg/dL (8.5-10.1); CREATININE 1.1 mg/dL (0.6-1.3); MAGNESIUM 2.3 mg/dL (1.8-2.4); PHOSPHORUS 5.6 mg/dL (2.5-4.9); POTASSIUM 4.1 mmol/L (3.5-5.1); TOTAL PROTEIN, SERUM 6.7 g/dL (6.4-8.2)
--- NOTE | 2021-04-01 08:00 | NUR ---
rn notes Seen patient in the bed a/o x3, patient on o2 2l NC, vss, no acute respiratory distress, patient refused pain at this time. Tolerated breakfast well, using urinal.patient using some mouth movement thongs brings out constant, and moving in the bed .
[2021-04-01] MEDS: THIAMINE HCL 100 MG TABLET PO SCH (08:51)
[2021-04-01] MEDS: CARVEDILOL 3.125 MG TABLET PO SCH ×2 (08:52→17:30)
[2021-04-01] MEDS: SPIRONOLACTONE 25 MG TABLET PO SCH (08:52)
[2021-04-01] MEDS: FOLIC ACID 1 MG TABLET PO SCH (08:52)
[2021-04-01] MEDS: VALSARTAN 80 MG TABLET PO SCH (08:52)
[2021-04-01] MEDS: ENOXAPARIN SODIUM 40 MG/0.4 ML DISP.SYRIN SQ SCH (08:54)
[2021-04-01] MEDS: POTASSIUM CHLORIDE 20 MEQ TAB.PRT.SR PO SCH ×3 (08:56→10:29)
[2021-04-01] MEDS: FUROSEMIDE 100 MG/10 ML VIAL IV SCH ×3 (08:56→16:27)
--- NOTE | 2021-04-01 09:00 | NUR ---
petr whitehead seen patient via psychiatrist Dr Melvin, patient has new medication Zyprexa bid will start now. due medication administered. patient will transfer to the tele unit with the meds. waiting for available bed.
[2021-04-01] MEDS: OLANZAPINE 2.5 MG TABLET PO SCH ×2 (09:56→20:14)
--- NOTE | 2021-04-01 10:15 | NUR ---
rn notes pt with the patient at this time walking in the hallway.
--- NOTE | 2021-04-01 12:34 | NUR ---
RN NOTES CET CALL FROM [facility] PERSONNEL NAME HAMILTON AND ASKING ABOUT PATIENT CONDITION, AND V/S. PER [facility] PERSONNEL THEY WILL TAKE PATIENT WAITING AVAILABLE BED .
--- NOTE | 2021-04-01 16:27 | NUR ---
rn notes Lasix 80mg/ml held because bp 92/55, p-87.
--- NOTE | 2021-04-01 18:49 | NUR ---
rn notes transferred patient to the tele unit stable, no acute respiratory distress, vss. bedside report given oncoming rn follow nilo.
--- NOTE | 2021-04-01 19:00 | NUR ---
RN NOTE PATIENT TRANSFER FROM ICU TO ROOM 323-2 ALERT ORIENTED 3-4 VERBALLY RESPONSIVE ON ROOM AIR O2:96% IV SITE IS ON LEFT UPPER ARM MIDLINE INTACT PATENT CONTIENT BOWEL/BLADDER SAFETY MEASURE IMPLEMENT HEAD OF THE BED ELEVATED CALL LIGHT WITHIN REACH CONTINUE TO MONITOR.
--- NOTE | 2021-04-01 23:53 | NUR ---
RN NOTE REPORT GIVEN TO GILBERT BEE FOR CONTINUATION OF CARE
[2021-04-02] VITALS: BP 105/55
--- NOTE | 2021-04-02 00:05 | NUR ---
REPORTS RECEIVED FROM RN VICKI, CHECKED PATIENT, RESTING IN BED, AWAKE, A/O X4, NO S/S OF DISTRESS NOTED. NO COMPLAIN OF PAIN. CALL LIGHT WITHIN REACH. BED IN LOWEST AND LOCKED POSITION.
--- NOTE | 2021-04-02 03:35 | NUR ---
INFORMED DR SPRINGER RE: PATIENT WILL BE TRANSFERRED TO [facility].
[2021-04-02 04:00] VITALS: BP 99/44
[2021-04-02 06:33] LABS: BASOPHILS # (AUTO) 0.1 K/uL (0.0-0.2); BASOPHILS % (AUTO) 0.8 % (0.0-2.0); EOSINOPHILS % (AUTO) 3.2 % (0.0-6.0); HEMATOCRIT 40 % (39-51); LYMPHOCYTES # (AUTO) 2.7 K/uL (0.8-4.8); LYMPHOCYTES % (AUTO) 37.8 % (20.0-44.0); MEAN CORPUSCULAR HGB CONC 33 g/dl (31.0-36.0); MEAN CORPUSCULAR VOLUME 92 fL (80-96); MONOCYTES # (AUTO) 0.6 K/uL (0.1-1.30); NEUTROPHILS # (AUTO) 3.5 K/uL (1.8-8.9); NEUTROPHILS % (AUTO) 50.2 % (43.0-81.0); PLATELET COUNT (AUTO) 291 K/uL (150-450); RED BLOOD CELL COUNT(AUTO) 4.32 MIL/uL (4.5-6.0); WHITE BLOOD COUNT (AUTO) 7.1 K/uL (4.3-11.0)
[2021-04-02 07:11] LABS: ALBUMIN 3.3 g/dL (3.4-5.0); BILIRUBIN,TOTAL 0.7 mg/dL (0.2-1.0); CALCIUM, SERUM 9.2 mg/dL (8.5-10.1); CREATININE 1.1 mg/dL (0.6-1.3); MAGNESIUM 2.2 mg/dL (1.8-2.4); POTASSIUM 4.2 mmol/L (3.5-5.1); TOTAL PROTEIN, SERUM 7.2 g/dL (6.4-8.2)
--- NOTE | 2021-04-02 08:00 | NUR ---
tele robotics technician: initial assessment received pt in bed awake, a/ox4. pt for transfer to [facility] for heart transplant evaluation. pt aware. pt denies chest pain or any discomfort. instructed to call for assistance.
[2021-04-02 08:34] VITALS: BP 108/51
[2021-04-02] MEDS: VALSARTAN 80 MG TABLET PO SCH (09:00)
[2021-04-02] MEDS ORDERED: FUROSEMIDE 40 MG TABLET PO SCH (09:00)
[2021-04-02] MEDS: CARVEDILOL 3.125 MG TABLET PO SCH (09:00)
[2021-04-02] MEDS: OLANZAPINE 2.5 MG TABLET PO SCH (09:24)
[2021-04-02] MEDS: THIAMINE HCL 100 MG TABLET PO SCH (09:24)
[2021-04-02] MEDS: FOLIC ACID 1 MG TABLET PO SCH (09:24)
[2021-04-02] MEDS: SPIRONOLACTONE 25 MG TABLET PO SCH (09:24)
[2021-04-02] MEDS: ENOXAPARIN SODIUM 40 MG/0.4 ML DISP.SYRIN SQ SCH (09:25)
--- NOTE | 2021-04-02 10:05 | NUR ---
tele associate professor of medicine: notes attempted to give report to august (rn), but says she is not ready and to call back in half an hour as stated.
--- NOTE | 2021-04-02 10:40 | NUR ---
tele microsoft dynamics manager architect: notes 2nd attempt to give report to august [place] [facility] and informed me that the picking machine operator helper will be delayed and she will have someone call there as stated.
--- NOTE | 2021-04-02 11:00 | NUR ---
tele manager banquet: md visit seen and examined by isabela eden with verbal order to [place] [facility] [place]. pt verbalized understanding. scarlet (sister) notified of time of transfer and will coordinate with her brother.
--- NOTE | 2021-04-02 11:10 | NUR ---
tele plaster whittler: notes call center notified to verify if bed is delayed, but informed me that it's still good to go, spoke to minh. also verified with brock (eleazar). attempted to call august, but still not available.
--- NOTE | 2021-04-02 11:25 | NUR ---
tele finisher accordion: notes report given to carie mosher) from [facility] for continuity of care. eta at 1230.
[2021-04-02 12:00] VITALS: BP 102/49
--- NOTE | 2021-04-02 13:35 | NUR ---
tele chicken dresser: notes ambulance here and report given to one of the crew. tele removed. pt to go with left upper midline#18. needs attended.
--- NOTE | 2021-04-02 13:43 | NUR ---
tele snow groomer: discharged discharged pt to another acute hospital for heart transplant evaluation via ambulance with all d'c papers and valuables accompanied by 2 ambulance crew.
== END 2021-04-02 13:40 | disposition short-term general hospital (02) | DRG 190 ==
LOC: ER 17:39 → TELE 20:39 → ICU 03-26 14:20 → TELE 04-01 19:24
PROVIDERS: ADMIT Family Medicine; ATTEND Registered Nurse
PROC: 05HC33Z Insertion of Infusion Device into Left Basilic Vein, Percutaneous Approach (ICD-10-PCS; principal; 2021-03-29)
DX: I21.4 Non-ST elevation (NSTEMI) myocardial infarction (principal); N17.0 Acute kidney failure with tubular necrosis; I50.43 Acute on chronic combined systolic (congestive) and diastolic (congestive) heart failure; I31.3 Pericardial effusion (noninflammatory); F29 Unspecified psychosis not due to a substance or known physiological condition; F15.251 Other stimulant dependence with stimulant-induced psychotic disorder with hallucinations; R18.8 Other ascites; I13.0 Hypertensive heart and chronic kidney disease with heart failure and stage 1 through stage 4 chronic kidney disease, or unspecified chronic kidney disease; F41.9 Anxiety disorder, unspecified; D64.9 Anemia, unspecified; F41.0 Panic disorder [episodic paroxysmal anxiety]; I25.10 Atherosclerotic heart disease of native coronary artery without angina pectoris; Z20.822 Contact with and (suspected) exposure to COVID-19; Z79.899 Other long term (current) drug therapy; Z72.0 Tobacco use; F10.10 Alcohol abuse, uncomplicated; Y90.9 Presence of alcohol in blood, level not specified; E66.9 Obesity, unspecified; Z68.28 Body mass index [BMI] 28.0-28.9, adult; N18.9 Chronic kidney disease, unspecified; Z83.3 Family history of diabetes mellitus
CPT/HCPCS: 36410; 36415; 71045-TC; 75574; 80048-TC; 80053-TC; 80061-TC; 82962-TC; 83735-TC; 83880; 84100-TC; 84132-TC; 84484-TC; 85025-TC; 85378-TC; 85610-TC; 85730-TC; 87081-TC; 93307-TC; 93970-TC; 97116-TC; 97530-TC; C9803; G0378; G0480; J1250; J1644; J1650; J1940; J2060; J2270; J2405; J3490; J7040; J7050; J7060; Q9967

== ENCOUNTER 2021-06-17 17:45 | Inpatient (IN) | payer OTHER ==
[~2021-06-17] VITALS: Ht 182.9 cm; Wt 97.5 kg
[~2021-06-17 17:45] MED LIST changes: +CARV3.122 PO; +FOLI0.4T6 PO; +FURO40TA5 PO; -OLANZAPINE 10 MG VIAL IM ONE; +THIA100T74 PO; +VALS80TA31 PO
[2021-06-17] MEDS ORDERED: ONDANSETRON HCL/PF 4 MG/2 ML VIAL ONE (19:14)
[2021-06-17] MEDS ORDERED: MORPHINE SULFATE INJ 4 MG/ML DISP.SYRIN ONE (19:15)
[2021-06-17] MEDS ORDERED: MORPHINE SULFATE INJ 2 MG/ML DISP.SYRIN IV ONE (19:30)
[2021-06-17] MEDS ORDERED: ONDANSETRON HCL/PF 4 MG/2 ML VIAL IVP ONE (19:30)
[2021-06-17 19:41] LABS: BASOPHILS % (AUTO) 0.6 % (0.0-2.0); EOSINOPHILS % (AUTO) 0.3 % (0.0-6.0); HEMATOCRIT 38 % (39-51); HEMOGLOBIN 12.1 g/dL (13.5-17.5); LYMPHOCYTES # (AUTO) 1.1 K/uL (0.8-4.8); LYMPHOCYTES % (AUTO) 14.9 % (20.0-44.0); MEAN CORPUSCULAR HGB CONC 32 g/dl (31.0-36.0); MEAN CORPUSCULAR VOLUME 90 fL (80-96); MONOCYTES # (AUTO) 0.4 K/uL (0.1-1.30); NEUTROPHILS % (AUTO) 79.2 % (43.0-81.0); PLATELET COUNT (AUTO) 427 K/uL (150-450); RED BLOOD CELL COUNT(AUTO) 4.19 MIL/uL (4.5-6.0); WHITE BLOOD COUNT (AUTO) 7.6 K/uL (4.3-11.0)
[2021-06-17 20:00] LABS: CALCIUM, SERUM 9.2 mg/dL (8.5-10.1); CREATININE 1.2 mg/dL (0.6-1.3); POTASSIUM 3.7 mmol/L (3.5-5.1)
[2021-06-17] MEDS ORDERED: IV NS 0.9% 250 ML IV ONE (21:11)
[2021-06-17] MEDS ORDERED: IOHEXOL-350 100 ML VIAL IV ONE (21:11)
[2021-06-17] MEDS ORDERED: FUROSEMIDE 20 MG/2 ML VIAL IV ONE (21:30)
[2021-06-17] MEDS ORDERED: FUROSEMIDE 20 MG/2 ML VIAL ONE (21:48)
[2021-06-17] MEDS ORDERED: ENOXAPARIN SODIUM 100 MG/ML DISP.SYRIN SQ ONE ×2 (22:00→23:35)
[2021-06-17] MEDS ORDERED: ASPIRIN 325 MG TABLET PO ONE (22:30)
[2021-06-17] MEDS ORDERED: ASPIRIN 325 MG TABLET ONE (23:35)
[2021-06-18] MEDS ORDERED: ZOLPIDEM TARTRATE 5 MG TABLET PO PRN
[2021-06-18] MEDS ORDERED: MAG HYDROX/AL HYDROX/SIMETH 30 ML UDC PO PRN
[2021-06-18] MEDS ORDERED: ACETAMINOPHEN 325 MG TABLET PO PRN
[2021-06-18] MEDS ORDERED: ONDANSETRON HCL/PF 4 MG/2 ML VIAL IVP PRN
[2021-06-18] MEDS ORDERED: ENOXAPARIN SODIUM 100 MG/ML DISP.SYRIN SQ SCH
[2021-06-18] MEDS ORDERED: Z GUARD REMEDY 4 OZ OINT TP PRN
[2021-06-18] MEDS ORDERED: MAGNESIUM HYDROXIDE 30 ML UDC PO PRN
[2021-06-18] MEDS ORDERED: MULT-447 PO (07:29)
[2021-06-18] MEDS ORDERED: SPIR25TA6 PO (07:29)
[2021-06-18] MEDS ORDERED: PANTOPRAZOLE 40 MG TABLET.DR PO ONE (08:03)
[2021-06-18] MEDS: PANTOPRAZOLE 40 MG TABLET.DR PO SCH (08:05)
[2021-06-18] MEDS ORDERED: ENOXAPARIN SODIUM 100 MG/ML DISP.SYRIN SQ ONE (09:16)
[2021-06-18] MEDS ORDERED: FUROSEMIDE 40 MG TABLET ONE (09:17)
[2021-06-18] MEDS ORDERED: SPIRONOLACTONE 25 MG TABLET ONE (09:17)
[2021-06-18] MEDS ORDERED: CARVEDILOL 6.25 MG TABLET ONE ×2 (09:17→17:07)
[2021-06-18] MEDS: CARVEDILOL 3.125 MG TABLET PO SCH ×2 (09:31→17:16)
[2021-06-18] MEDS: ENOXAPARIN SODIUM 100 MG/ML DISP.SYRIN SQ SCH ×2 (09:31→21:46)
[2021-06-18] MEDS: SPIRONOLACTONE 25 MG TABLET PO SCH (09:31)
[2021-06-18] MEDS: FUROSEMIDE 40 MG TABLET PO SCH (09:32)
[2021-06-18 21:15] VITALS: BP 99/66
[2021-06-18 21:30] VITALS: BP 99/66
[2021-06-19] VITALS: BP 99/64
[2021-06-19 04:00] VITALS: BP 100/64
[2021-06-19] MEDS: PANTOPRAZOLE 40 MG TABLET.DR PO SCH (06:39)
[2021-06-19 07:19] LABS: ALBUMIN 2.5 g/dL (3.4-5.0); BILIRUBIN,TOTAL 0.7 mg/dL (0.2-1.0); CALCIUM, SERUM 8.3 mg/dL (8.5-10.1); CREATININE 1.3 mg/dL (0.6-1.3); MAGNESIUM 1.8 mg/dL (1.8-2.4); PHOSPHORUS 4.2 mg/dL (2.5-4.9); POTASSIUM 3.5 mmol/L (3.5-5.1); TOTAL PROTEIN, SERUM 6.7 g/dL (6.4-8.2)
[2021-06-19 07:23] LABS: BASOPHILS # (AUTO) 0.1 K/uL (0.0-0.2); BASOPHILS % (AUTO) 1.3 % (0.0-2.0); EOSINOPHILS % (AUTO) 0.9 % (0.0-6.0); HEMATOCRIT 34 % (39-51); HEMOGLOBIN 10.8 g/dL (13.5-17.5); LYMPHOCYTES # (AUTO) 2.1 K/uL (0.8-4.8); LYMPHOCYTES % (AUTO) 32.2 % (20.0-44.0); MEAN CORPUSCULAR HGB CONC 32 g/dl (31.0-36.0); MEAN CORPUSCULAR VOLUME 89 fL (80-96); MONOCYTES # (AUTO) 0.6 K/uL (0.1-1.30); MONOCYTES % (AUTO) 8.4 % (2.0-12.0); NEUTROPHILS # (AUTO) 3.8 K/uL (1.8-8.9); NEUTROPHILS % (AUTO) 57.2 % (43.0-81.0); PLATELET COUNT (AUTO) 343 K/uL (150-450); RED BLOOD CELL COUNT(AUTO) 3.77 MIL/uL (4.5-6.0); WHITE BLOOD COUNT (AUTO) 6.6 K/uL (4.3-11.0)
[2021-06-19 08:00] VITALS: BP 123/67
[2021-06-19] MEDS: SPIRONOLACTONE 25 MG TABLET PO SCH (09:00)
[2021-06-19] MEDS ORDERED: QUETIAPINE FUMARATE 25 MG TABLET PO SCH (09:00)
[2021-06-19] MEDS: FUROSEMIDE 40 MG TABLET PO SCH (10:04)
[2021-06-19] MEDS: OLANZAPINE 5 MG TABLET PO SCH (10:04)
[2021-06-19] MEDS: CARVEDILOL 3.125 MG TABLET PO SCH ×2 (10:06→17:00)
[2021-06-19] MEDS: ENOXAPARIN SODIUM 100 MG/ML DISP.SYRIN SQ SCH ×2 (10:09→22:25)
[2021-06-19 12:00] VITALS: BP 101/63
[2021-06-19 16:00] VITALS: BP 108/70
[2021-06-19 20:00] VITALS: BP 107/52
[2021-06-20] VITALS: BP 105/53
[2021-06-20 04:00] VITALS: BP_SYST 56; BP_SYST 95; BP_DIAS 56; BP_DIAS 95
[2021-06-20 06:42] LABS: BASOPHILS # (AUTO) 0.1 K/uL (0.0-0.2); BASOPHILS % (AUTO) 0.9 % (0.0-2.0); EOSINOPHILS % (AUTO) 1.4 % (0.0-6.0); HEMATOCRIT 34 % (39-51); HEMOGLOBIN 11.2 g/dL (13.5-17.5); LYMPHOCYTES # (AUTO) 2.2 K/uL (0.8-4.8); LYMPHOCYTES % (AUTO) 33.4 % (20.0-44.0); MEAN CORPUSCULAR HGB CONC 33 g/dl (31.0-36.0); MEAN CORPUSCULAR VOLUME 89 fL (80-96); MONOCYTES # (AUTO) 0.6 K/uL (0.1-1.30); MONOCYTES % (AUTO) 9.2 % (2.0-12.0); NEUTROPHILS # (AUTO) 3.6 K/uL (1.8-8.9); NEUTROPHILS % (AUTO) 55.1 % (43.0-81.0); PLATELET COUNT (AUTO) 332 K/uL (150-450); RED BLOOD CELL COUNT(AUTO) 3.84 MIL/uL (4.5-6.0); WHITE BLOOD COUNT (AUTO) 6.5 K/uL (4.3-11.0)
[2021-06-20 07:24] LABS: ALBUMIN 2.5 g/dL (3.4-5.0); BILIRUBIN,TOTAL 0.6 mg/dL (0.2-1.0); CALCIUM, SERUM 8.2 mg/dL (8.5-10.1); MAGNESIUM 1.8 mg/dL (1.8-2.4); POTASSIUM 3.3 mmol/L (3.5-5.1); TOTAL PROTEIN, SERUM 6.4 g/dL (6.4-8.2)
[2021-06-20 08:00] VITALS: BP 108/70
[2021-06-20] MEDS: OLANZAPINE 5 MG TABLET PO SCH (08:24)
[2021-06-20] MEDS: PANTOPRAZOLE 40 MG TABLET.DR PO SCH (08:24)
[2021-06-20] MEDS: FUROSEMIDE 40 MG TABLET PO SCH (08:24)
[2021-06-20] MEDS: ENOXAPARIN SODIUM 100 MG/ML DISP.SYRIN SQ SCH ×2 (08:25→21:12)
[2021-06-20] MEDS: SPIRONOLACTONE 25 MG TABLET PO SCH (08:31)
[2021-06-20] MEDS: CARVEDILOL 3.125 MG TABLET PO SCH ×2 (08:32→16:42)
[2021-06-20] MEDS ORDERED: POTASSIUM CHLORIDE 20 MEQ TAB.PRT.SR PO SCH (10:00)
[2021-06-20 16:00] VITALS: BP 99/58
[2021-06-20 20:00] VITALS: BP 102/58
[2021-06-21] VITALS: BP 106/63
[2021-06-21 04:00] VITALS: BP 108/72
[2021-06-21 07:13] LABS: CALCIUM, SERUM 8.4 mg/dL (8.5-10.1); CREATININE 0.9 mg/dL (0.6-1.3); POTASSIUM 3.3 mmol/L (3.5-5.1)
[2021-06-21 08:00] VITALS: BP 109/69
[2021-06-21] MEDS ORDERED: ENOXAPARIN SODIUM 40 MG/0.4 ML DISP.SYRIN SQ SCH (08:00)
[2021-06-21] MEDS: SPIRONOLACTONE 25 MG TABLET PO SCH (08:55)
[2021-06-21] MEDS: OLANZAPINE 5 MG TABLET PO SCH (08:55)
[2021-06-21] MEDS: PANTOPRAZOLE 40 MG TABLET.DR PO SCH (08:55)
[2021-06-21] MEDS: CARVEDILOL 3.125 MG TABLET PO SCH ×2 (09:00→17:00)
[2021-06-21] MEDS: POTASSIUM CHLORIDE 20 MEQ TAB.PRT.SR PO SCH ×2 (10:23→11:23)
[2021-06-21 12:00] VITALS: BP 111/66
[2021-06-21 16:00] VITALS: BP 108/67
[2021-06-21 20:00] VITALS: BP 105/65
[2021-06-21] MEDS ORDERED: POTASSIUM CHLORIDE 20 MEQ TAB.PRT.SR PO ONE ×3 (21:00→22:00)
[2021-06-22] VITALS: BP 109/69
[2021-06-22 04:00] VITALS: BP 118/86
[2021-06-22 07:52] LABS: CALCIUM, SERUM 8.9 mg/dL (8.5-10.1); CREATININE 0.9 mg/dL (0.6-1.3); POTASSIUM 4.3 mmol/L (3.5-5.1)
[2021-06-22 08:00] VITALS: BP 107/71
[2021-06-22] MEDS: SPIRONOLACTONE 25 MG TABLET PO SCH (08:46)
[2021-06-22] MEDS: PANTOPRAZOLE 40 MG TABLET.DR PO SCH (08:46)
[2021-06-22] MEDS: OLANZAPINE 5 MG TABLET PO SCH (08:46)
[2021-06-22] MEDS: CARVEDILOL 3.125 MG TABLET PO SCH ×2 (08:47→16:24)
[2021-06-22 12:00] VITALS: BP 103/67
[2021-06-22 16:00] VITALS: BP_SYST 100; BP_SYST 87; BP_DIAS 58; BP_DIAS 61
[2021-06-22 20:50] VITALS: BP 105/46
[2021-06-23] VITALS: BP 97/58
[2021-06-23 04:00] VITALS: BP 104/64
[2021-06-23 07:53] LABS: BASOPHILS % (AUTO) 0.7 % (0.0-2.0); EOSINOPHILS % (AUTO) 3.4 % (0.0-6.0); HEMATOCRIT 36 % (39-51); HEMOGLOBIN 11.5 g/dL (13.5-17.5); LYMPHOCYTES # (AUTO) 1.5 K/uL (0.8-4.8); LYMPHOCYTES % (AUTO) 23.4 % (20.0-44.0); MEAN CORPUSCULAR HGB CONC 32 g/dl (31.0-36.0); MEAN CORPUSCULAR VOLUME 89 fL (80-96); MONOCYTES # (AUTO) 0.6 K/uL (0.1-1.30); MONOCYTES % (AUTO) 9.6 % (2.0-12.0); NEUTROPHILS # (AUTO) 4.1 K/uL (1.8-8.9); NEUTROPHILS % (AUTO) 62.9 % (43.0-81.0); PLATELET COUNT (AUTO) 382 K/uL (150-450); RED BLOOD CELL COUNT(AUTO) 4.03 MIL/uL (4.5-6.0); WHITE BLOOD COUNT (AUTO) 6.5 K/uL (4.3-11.0)
[2021-06-23 08:00] VITALS: BP 108/63
[2021-06-23 08:22] LABS: CALCIUM, SERUM 8.8 mg/dL (8.5-10.1); CREATININE 0.8 mg/dL (0.6-1.3); MAGNESIUM 2.3 mg/dL (1.8-2.4); PHOSPHORUS 3.6 mg/dL (2.5-4.9); POTASSIUM 4.2 mmol/L (3.5-5.1)
[2021-06-23] MEDS: CARVEDILOL 3.125 MG TABLET PO SCH ×2 (08:40→16:19)
[2021-06-23] MEDS: OLANZAPINE 5 MG TABLET PO SCH (08:40)
[2021-06-23] MEDS: SPIRONOLACTONE 25 MG TABLET PO SCH (08:40)
[2021-06-23] MEDS: PANTOPRAZOLE 40 MG TABLET.DR PO SCH (08:40)
[2021-06-23] MEDS: APIXABAN 5 MG TABLET PO SCH ×2 (11:39→16:21)
[2021-06-23 12:00] VITALS: BP 101/51
[2021-06-23 16:00] VITALS: BP 91/55
[2021-06-23 20:43] VITALS: BP 93/51
[2021-06-24 00:27] VITALS: BP 102/50
[2021-06-24 04:26] VITALS: BP 111/67
[2021-06-24 07:17] LABS: BASOPHILS # (AUTO) 0.1 K/uL (0.0-0.2); BASOPHILS % (AUTO) 0.9 % (0.0-2.0); EOSINOPHILS % (AUTO) 3.9 % (0.0-6.0); HEMATOCRIT 37 % (39-51); HEMOGLOBIN 11.8 g/dL (13.5-17.5); LYMPHOCYTES # (AUTO) 1.6 K/uL (0.8-4.8); LYMPHOCYTES % (AUTO) 23.9 % (20.0-44.0); MEAN CORPUSCULAR HGB CONC 32 g/dl (31.0-36.0); MEAN CORPUSCULAR VOLUME 89 fL (80-96); MONOCYTES # (AUTO) 0.5 K/uL (0.1-1.30); MONOCYTES % (AUTO) 7.6 % (2.0-12.0); NEUTROPHILS # (AUTO) 4.2 K/uL (1.8-8.9); NEUTROPHILS % (AUTO) 63.7 % (43.0-81.0); PLATELET COUNT (AUTO) 366 K/uL (150-450); RED BLOOD CELL COUNT(AUTO) 4.15 MIL/uL (4.5-6.0); WHITE BLOOD COUNT (AUTO) 6.5 K/uL (4.3-11.0)
[2021-06-24 07:32] LABS: CALCIUM, SERUM 8.9 mg/dL (8.5-10.1); CREATININE 0.8 mg/dL (0.6-1.3); MAGNESIUM 2.4 mg/dL (1.8-2.4); PHOSPHORUS 3.9 mg/dL (2.5-4.9); POTASSIUM 3.9 mmol/L (3.5-5.1)
[2021-06-24 08:00] VITALS: BP 105/60
[2021-06-24] MEDS: PANTOPRAZOLE 40 MG TABLET.DR PO SCH (08:25)
[2021-06-24] MEDS: OLANZAPINE 5 MG TABLET PO SCH (08:25)
[2021-06-24] MEDS: SPIRONOLACTONE 25 MG TABLET PO SCH (08:25)
[2021-06-24] MEDS: CARVEDILOL 3.125 MG TABLET PO SCH (08:26)
[2021-06-24] MEDS: APIXABAN 5 MG TABLET PO SCH (08:28)
[2021-06-24] MEDS ORDERED: LOSARTAN POTASSIUM 50 MG TABLET PO SCH (10:00)
[2021-06-24] MEDS ORDERED: APIX5TAB PO (11:59)
[2021-06-24] MEDS ORDERED: LOSA50TA39 PO (11:59)
[2021-06-24 12:00] VITALS: BP 106/66
== END 2021-06-24 15:00 | disposition home or self-care (01) | DRG 194 ==
LOC: ER 19:07 → TRANSITION 23:11 → TELE 06-18 19:22
PROVIDERS: ADMIT Internal Medicine; ATTEND Registered Nurse
PROC: 0W993ZZ Drainage of Right Pleural Cavity, Percutaneous Approach (ICD-10-PCS; principal; 2021-06-23)
DX: I50.43 Acute on chronic combined systolic (congestive) and diastolic (congestive) heart failure (principal); J96.01 Acute respiratory failure with hypoxia; I21.A1 Myocardial infarction type 2; J90 Pleural effusion, not elsewhere classified; I42.0 Dilated cardiomyopathy; Z20.822 Contact with and (suspected) exposure to COVID-19; Z79.899 Other long term (current) drug therapy; F17.200 Nicotine dependence, unspecified, uncomplicated; R44.0 Auditory hallucinations; F19.11 Other psychoactive substance abuse, in remission; J98.11 Atelectasis; Z76.5 Malingerer [conscious simulation]; Z83.3 Family history of diabetes mellitus
CPT/HCPCS: 36415; 71045-TC; 80048-TC; 80053-TC; 82962-TC; 83735-TC; 83880; 84100-TC; 84155-TC; 84484-TC; 85025-TC; 85378-TC; 85730-TC; 87070-TC; 87075-TC; 87081-TC; 87102-TC; 89051-TC; 93970-TC; C9803; G0378; J1650; J1940; J2270; J2405; J7050; Q9967